=== PATIENT | male | born 1960 | race Caucasian/White ===

== ENCOUNTER 2017-11-01 21:52 | Emergency (ER) | payer BC, SELFPAY ==
[2017-11-01 21:58] VITALS: PULSE 79; RESP 18; TEMP 36.3; O2SAT 97; BMI 30.7
--- NOTE | 2017-11-01 21:58 | ED.RN ---
NO OLD EKG'S IN MUSE
[2017-11-01 22:01] VITALS: BP 123/73
--- NOTE | 2017-11-01 22:15 | EKG12_ITS ---
Test Reason : CP Blood Pressure : / mmHG Vent. Rate : 067 BPM Atrial Rate : 067 BPM P-R Int : 142 ms QRS Dur : 092 ms QT Int : 384 ms P-R-T Axes : 073 027 046 degrees QTc Int : 405 ms Normal sinus rhythm Normal ECG Confirmed by YOGI GORE, LAKEISHA ([id number]), assistant film editor ESAU GREEN ([id number]) on 11/05/2017 2:11:49 PM Referred By: FILEMON Confirmed By:LAKEISHA CALIX MD
[2017-11-01 22:17] VITALS: O2SAT 99
[2017-11-01] MEDS: Aspirin 81 MG TAB.CHEW 324 MG PO (22:20)
[2017-11-01 22:27] LABS: Absolute Lymphocyte Count 4.23 X10^3/ul (0.83-4.51); Basophil# 0.03 X10^3/uL; Basophil% 0.3 % (0-1); Eosinophil# 0.18 X10^3/uL; Hematocrit 44.2 % (40-54); Hemoglobin 14.4 g/dl (13.0-16.5); Lymphocyte # 4.23 X10^3/ul (4.0); Lymphocyte % 47.2 % (19-41); Mean Corp Hgb Conc 32.6 g/gl (32-36); Mean Corpuscular Hgb 29.8 pg (27.0-32.0); Mean Corpuscular Volume 91.3 fL (80-94); Mean Platelet Vol. 11.5 fl (6.2-12.0); Monocyte# 0.52 X10^3/uL; Monocyte% 5.8 % (0-10); Neutrophil % 44.7 % (47-70); Platelet Count 188 K/mm3 (150-450); RBC Distribution Width CV 13.1 % (11.6-14.6); RBC Distribution Width SD 42.9 fl (35.1-43.9); Red Blood Count 4.84 M/mm3 (4.6-6.2)
[2017-11-01 22:28] LABS: POSITIVE COUNT NO; POSITIVE DIFFERENTIAL NO; POSITIVE MORPHOLOGY NO
[2017-11-01 22:34] LABS: D-Dimer Quantitative (DVT/PE) 0.37 FEU/ug/m (0.27-0.49)
--- NOTE | 2017-11-01 22:35 | RAD_ITS ---
STUDY: X-RAY CHEST REASON FOR EXAM: Male, 57 years old. Chest pain TECHNIQUE: 2 views COMPARISON: None. FINDINGS: Limited inspiration with bibasilar atelectatic changes versus infiltrate, left greater than right. Negative for substantial pleural effusion. Normal size heart. Normal mediastinum and lyle. Normal visualized pulmonary arteries. Mild elongation of the thoracic aorta. Normal visualized thoracic spine. Normal visualized ribs, clavicles, and shoulders. There is no demonstrated abnormality of the visualized soft tissue structures of the upper abdomen. RAD/Chest PA and Lateral IMPRESSION: Shallow inspiration with bibasilar small infiltrates or atelectasis, left greater than right. Potential pneumonic process. Negative for cardiomegaly, pulmonary venous congestion or substantial pleural effusions. Electronically Signed: Rita Elise MD at 23:29 EST , Service support ,
[2017-11-01 22:45] LABS: Anion Gap 8 (5-15); BUN 20 mg/dL (7-18); BUN/Creat Ratio 19.4 RATIO (10-20); Calcium,Total 8.5 mg/dL (8.5-10.1); Chloride 106 mmol/L (98-107); Creatinine, Serum 1.03 mg/dL (0.70-1.30); EST Glomerular Filtration Rate 78 mL/min (>60); Est Glom Filt Rate - Afr Amer 95 mL/min (>60); Estimated Creatinine Clearance 79.73 ml/min; Glucose 97 mg/dL (74-106); Potassium 3.4 mmol/L (3.5-5.1); Sodium Level 141 mmol/L (136-145)
[2017-11-01 23:12] VITALS: BP 109/68; PULSE 60; RESP 12; O2SAT 97
[2017-11-01] MEDS: Ketorolac 30 MG/ML Syringe IV (23:27)
--- NOTE | 2017-11-01 23:45 | ED.DCSUM_ITS ---
- ER Visit Summary Date of Service: 11/01/17 Chief Complaint: Chest pain History of Present Illness: The patient is a 57 M who presents with chest pain. It began about an hour ago while at rest. It is sharp. It is point tender on the left side of his chest below his breast. It is worse with movement of the torso palpation or breathing. He denies any associated symptoms such as nausea vomiting diaphoresis shortness of breath cough congestion rhinorrhea sore throat fever. History of exertional chest pain or shortness of breath. He denies any medical history. He denies diabetes hypertension hyperlipidemia. He is not a smoker. No family history of heart disease at a young age. No pulmonary embolism risk factors such as recent travel surgery or immobilization. Physical Examination: Afebrile vitals are normal Moist mucous members Heart regular rate and rhythm Lungs are clear Patient has point tenderness of the left anterior chest wall. Abdomen soft nontender nondistended Extremities nontender without edema 2+ radial pulses Test Results: EKG shows normal sinus rhythm rate of 67. CBC BMP unremarkable. Troponin negative. D-dimer negative. Chest x-ray shows small bibasilar infiltrates or atelectasis left greater than right possible pneumonia. Emergency Department Course and Treatment: Laboratory studies unremarkable and EKG shows normal sinus rhythm with no acute ischemic changes. Chest x-ray findings are consistent with atelectasis versus possible pneumonia. When I discussed this with the patient he now states that he actually has had some chest congestion and mild cough. The risks and benefits I would eat him for potential pneumonia. He was given a prescription for Zithromax. He was also given a prescription for naproxen for pain. He understands to return for new or worsening symptoms. He was advised to follow-up as an outpatient. She is answered at bedside. Patient agreeable to plan was discharged home. Treatment Plan: [] Disposition: Discharge Impression: Chest pain Community-acquired pneumonia This note was generated with Serv[employer] dictation software. It may contain incorrect words, spelling, and punctuation that were not noted in review of the chart prior to signing ED Disposition - Plan for ED Patient: Chief Complaint: Chest Pain Referrals: Moose Yang DO [Primary Care Provider] -
--- NOTE | 2017-11-01 23:45 | ED.DEP ---
ED Disposition - Plan for ED Patient: Chief Complaint: Chest Pain Instructions: ED Chest Pain NonCardiac, ED Pneumonia Adult Prescriptions: Azithromycin [Zithromax Z-Gutierrez] 250 mg PO UD #1 box Naproxen [Naprosyn] 500 mg PO BID #20 tab Referrals: Moose Yang DO [Primary Care Provider] -
[2017-11-01 23:47] VITALS: BP 119/72; PULSE 62; RESP 17; O2SAT 99
== END 2017-11-01 23:55 | disposition home or self-care (01) ==
PROVIDERS: Emergency Provider Emergency Medicine; Family Provider Family Medicine; PCP Family Medicine
DX: J18.9 Pneumonia, unspecified organism (principal); R07.9 Chest pain, unspecified
CPT/HCPCS: 71046; 80048; 84484; 85025; 85379; 93005; 96374; 99285; A4216

== ENCOUNTER → 2017-11-28 17:33 | Outpatient (CLI) | payer BC, SELFPAY ==
--- NOTE | 2017-11-28 17:47 | RAD_ITS ---
STUDY: X-RAY CHEST REASON FOR EXAM: Male, 57 years old. History pneumonia TECHNIQUE: Frontal and lateral views of the chest. COMPARISON: 11/01/2017. FINDINGS: The lungs are clear and expanded. There is no demonstrated pleural abnormality. Normal size heart. Normal mediastinum and lyle. Normal visualized pulmonary arteries. Normal visualized aortic arch and descending thoracic aorta. Normal visualized thoracic spine. Normal visualized ribs, clavicles, and shoulders. There is no demonstrated abnormality of the visualized soft tissue structures of the upper abdomen. RAD/Chest PA and Lateral IMPRESSION: No acute cardiopulmonary disease. Electronically Signed: Simón Guerra DO at 18:11 EDT , Service support ,
== END ==
PROVIDERS: Family Provider Family Medicine; PCP Family Medicine
DX: J18.1 Lobar pneumonia, unspecified organism (principal)
CPT/HCPCS: 71046

== ENCOUNTER 2017-12-05 20:25 | Emergency (ER) | payer BC, SELFPAY ==
[2017-12-05 20:25] VITALS: BP 140/81; PULSE 95; RESP 16; TEMP 36.5; O2SAT 99; BMI 30.8
--- NOTE | 2017-12-05 20:34 | ED.DCSUM_ITS ---
- ER Visit Summary Date of Service: 12/05/17 Chief Complaint: Abdominal pain, flulike illness History of Present Illness: The patient is a 57 M since to the emergency department with approximately 12 hours of generalized malaise, chills, myalgias , and left lower quadrant pain. The patient states symptoms began this morning. He states he felt hung over. He states he began to have some generalized aches and pains. Throughout the day, he began have some pain in the left side of his abdomen more towards the lower quadrant. He did have some loose watery diarrhea which has since resolved. He states his never had symptoms like this before. The patient is otherwise healthy. He takes no daily medications. He has no history of abdominal surgery. He was seen at urgent care and sent over for further evaluation. Physical Examination: Vital signs reviewed General: Well-nourished, well-developed Head: Normocephalic, atraumatic Eyes: Pupils equal and reactive, extraocular muscles intact Neck, supple, no lymphadenopathy Heart: Regular rate and rhythm Respiratory: No distress, clear bilaterally Abdomen: Soft, nontender, mildly tender in the left lower quadrant without rebound or guarding, no peritoneal signs Back: Nontender Extremities: Nontender, no edema, no cords Skin: Normal color no rash Neuro: Alert and oriented, no focal or lateralizing deficits Test Results: [] Emergency Department Course and Treatment: The patient did have infectious type symptoms with mild pain in his left lower quadrant. IV was established. He was given fluids, antiemetics, and anti-inflammatories. He did have improvement of his symptoms. Rapid flu was negative. Screening labs are unremarkable. CT shows small nodes and some dilated loops of fluid-filled small bowel consistent with enteritis. On reevaluation, the patient has a soft and nontender abdomen. He has had no progression of symptoms. I do feel that this likely represents a viral GI illness. At this time, I do for the patient is safe for discharge. He was counseled on supportive care and reasons to return. The patient will be discharged home. Treatment Plan: [] Disposition: Discharge Impression: 1. Gastroenteritis This note was generated with [employer] dictation software. It may contain incorrect words, spelling, and punctuation that were not noted in review of the chart prior to signing ED Disposition - Plan for ED Patient: Chief Complaint: Abd Pain Instructions: ED Gastroenteritis Vs Food Poison Referrals: Moose Yang DO [Primary Care Provider] -
--- NOTE | 2017-12-05 20:35 | CT_ITS ---
CT Abdomen And Pelvis W/ Contrast INDICATION: LEFT SIDE ABD PAIN, DIVERTICULITIS COMPARISON: None TECHNIQUE: Axial CT imaging of the abdomen and pelvis with IV contrast. Coronal and sagittal reformatted images. Radiation dose optimization technique applied. FINDINGS: Visualized lung bases are clear. The heart size is normal. A small hiatal hernia is present. The liver, gallbladder, spleen, adrenal glands, and pancreas are unremarkable. The kidneys enhance contrast symmetrically bilaterally and are without evidence of hydronephrosis. Small right cortical renal cyst is noted. The bowel loops are nondistended. Small bowel loops are fluid-filled. Distal colonic diverticulosis is present without evidence of acute diverticulitis. Multiple small mesenteric lymph nodes are seen, likely reactive. Urinary bladder appears within normal limits. Prostate is mildly prominent. There is no evidence of free air or free fluid. The osseous structures demonstrate endplate degenerative changes at the upper lumbar spine and a limbus vertebra at L4. CT/Abdomen/Pelvis W IV Cont ONLY IMPRESSION: Scattered colonic diverticulosis without evidence of acute diverticulitis. Fluid-filled small bowel loops and few reactive mesenteric lymph nodes, most suggestive of enteritis. at 2210 Reported and signed by: Ricarda Nuñez MD Electronically Signed: Ricarda Nuñez MD at 21:09 EDT Tel , Service support ,
[2017-12-05 20:52] LABS: Absolute Neutrophil Count 7.7 X10^3/uL (2.0-7.7); Basophil# 0.02 X10^3/uL; Basophil% 0.2 % (0-1); Eosinophil# 0.13 X10^3/uL; Eosinophils% 1.4 % (0-5); Hematocrit 47.5 % (40-54); Hemoglobin 15.7 g/dl (13.0-16.5); Lymphocyte % 9.7 % (19-41); Mean Corp Hgb Conc 33.1 g/gl (32-36); Mean Corpuscular Volume 90.8 fL (80-94); Mean Platelet Vol. 11.3 fl (6.2-12.0); Monocyte# 0.54 X10^3/uL; Monocyte% 5.8 % (0-10); Neutrophil # 7.66 X10^3/uL (2.7-7.7); Neutrophil % 82.9 % (47-70); Platelet Count 165 K/mm3 (150-450); RBC Distribution Width CV 13.1 % (11.6-14.6); RBC Distribution Width SD 43.4 fl (35.1-43.9); Red Blood Count 5.23 M/mm3 (4.6-6.2); White Blood Count 9.3 K/mm3 (4.4-11.0)
[2017-12-05 20:53] LABS: POSITIVE COUNT NO; POSITIVE DIFFERENTIAL NO; POSITIVE MORPHOLOGY NO
[2017-12-05] MEDS: Ketorolac 30 MG/ML Syringe IV (20:54)
[2017-12-05] MEDS: 0.9% Normal Saline 1,000 ML 1000 ML IV (20:54)
[2017-12-05] MEDS: Ondansetron 4 MG/2 ML Vial IV (20:54)
[2017-12-05 21:09] LABS: ALB/GLOB Ratio 1.1 RATIO (0.9-2.4); AST(SGOT) 23 U/L (15-37); Alanine Aminotransfer ALT/SGPT 25 U/L (16-61); Albumin, Serum 4.2 g/dL (3.2-5.0); Alkaline Phosphatase 74 U/L (45-117); Anion Gap 6 (5-15); BUN 13 mg/dL (7-18); BUN/Creat Ratio 13.5 RATIO (10-20); Calcium,Total 8.2 mg/dL (8.5-10.1); Chloride 107 mmol/L (98-107); Creatinine, Serum 0.96 mg/dL (0.70-1.30); EST Glomerular Filtration Rate 85 mL/min (>60); Est Glom Filt Rate - Afr Amer 102 mL/min (>60); Estimated Creatinine Clearance 85.55 ml/min; Globulin 3.7 g/dL (2.2-4.2); Glucose 103 mg/dL (74-106); Potassium 3.7 mmol/L (3.5-5.1); Protein, Total 7.9 g/dL (6.4-8.2); Sodium Level 142 mmol/L (136-145)
[2017-12-05 21:43] LABS: Bacteria 0 SEEN /hpf (None Seen); Red Blood Cells-Urine 0 SEEN /hpf (0-5); Squamous Epithelial Cells - UA 0 SEEN /hpf (0-5)
[2017-12-05 21:47] LABS: Color, Urine Yellow (Yellow); Glucose, Dipstick Normal (Normal); Ketone-Dipstick Negative (Negative); Leukocyte Esterase-Dipstick Negative /ul (Negative); Nitrite-Dipstick Negative (Negative); Occult Blood-Urine Negative /ul (Negative); Protein-Dipstick Negative (Negative); Specific Gravity, Urine 1.015 (1.002-1.030); Urine Bilirubin Dipstick Negative (Negative); Urine Clarity Clear (Clear); Urine Urobilinogen Normal (Normal)
[2017-12-05 21:56] LABS: Mucous, Urine 1+ /hpf (<or=2+)
[2017-12-05 21:58] LABS: White Blood Cells 0-5 SEEN /hpf (0-5)
[2017-12-05 22:00] LABS: Hyaline Cast 0-5 SEEN /lpf (0-5)
[2017-12-05 22:38] VITALS: BP 127/70; PULSE 89; RESP 16; O2SAT 95
== END 2017-12-05 23:17 | disposition home or self-care (01) ==
PROVIDERS: Emergency Provider Emergency Medicine; Family Provider Family Medicine; PCP Family Medicine
DX: K52.9 Noninfective gastroenteritis and colitis, unspecified (principal)
CPT/HCPCS: 74177; 80053; 81001; 85025; 87804; 96361; 96374; 96375; 99284; J7030; Q9967; A4216; J2405

== ENCOUNTER → 2017-12-22 10:38 | Outpatient (CLI) | payer BC, SELFPAY ==
--- NOTE | 2017-12-22 10:43 | STE_ITS ---
Reason For Study: Chest Discomfort Stress Results Protocol: Rosalino Protocol Maximum Predicted HR: 161 bpm Target HR: 137 bpm% Max imum Predicted HR: 99 % DurationHeart Rate Stage (mm:ss) (bpm) BP Baseline 63 118/74 Rosalino Protocol Stage I 3:00 10 7 132/74 Rosalino Protocol Stage II 3:00 13 1 130/74 Rosalino Protocol Stage III 3:00 16 0 146/68 Recovery 100 122/7 2 Stress Duration: 9:00 mm:ss Maximum Stress HR: 160 bpmM ETS: 10 Baseline Echocardiogram Findings Stress Echo Wall motion Data Resting WMIntermediate WMStress WM Resting Wall Motion Wall Motion Stress No regional wall motion No regional wall motion abnormalities noted. abnormalities noted. Ejection Fraction 60 %. Ejection Fraction 65 %. Stress Results Exercise was stopped due to dyspnea. Normal blood pressure response to exercise. EKG Data Baseline ECG demonstrates normal sinus rhythm with a rate of 62 beats per minute. Normal intervals are noted. The resting blood pressure was 118/74. The patient exercised according to the regular Rosalino protocol for a total duration of 9. The maximum heart rate attained was 160 beats per minute. This was 99% of maximum predicted heart rate. The patient exercised into stage 3 of the Rosalino protocol. During stress, there were no ST or T wave changes noted to suggest ischemia. At peak exercise, upsloping ST changes only were noted, which did not meet the criteria for ischemia. The peak blood pressure was 160/64. No arrhythmias noted. No clinical angina was noted. Interpretation Summary Normal resting LV systolic function. Nonstenotic valves. With stress, the LV size decreased and all segments augmented normally. The LVEF increased from 60% to 65%. Negative for ischemia at 99% of MPHR and at 10.4 METS. Normal stress echo at a high workload. Ordering Physician: Moose Yang M.D. Referring Physician: Moiz Ramsey MD Performed By: Roof, Andreia, RDCS, RVT
== END ==
PROVIDERS: Family Provider Family Medicine; PCP Family Medicine
DX: R07.89 Other chest pain (principal)
CPT/HCPCS: 93017; 93350

== ENCOUNTER 2018-09-11 14:33 | Emergency (ER) | payer BC, SELFPAY ==
[2018-09-11 14:35] VITALS: BP 133/70; PULSE 68; RESP 16; TEMP 36.6; O2SAT 98; BMI 30.8
[2018-09-11 14:37] VITALS: BP 142/75; PULSE 63; RESP 12; O2SAT 96
--- NOTE | 2018-09-11 14:55 | EKG12_ITS ---
Test Reason : CP Blood Pressure : / mmHG Vent. Rate : 066 BPM Atrial Rate : 066 BPM P-R Int : 162 ms QRS Dur : 090 ms QT Int : 392 ms P-R-T Axes : 051 011 041 degrees QTc Int : 410 ms Normal sinus rhythm Normal ECG Confirmed by YOGI GORE, LAKEISHA ([id number]), pictures editor ESAU GREEN ([id number]) on 09/14/2018 1:27:09 PM Referred By: DC Confirmed By:LAKEISHA CALIX MD
--- NOTE | 2018-09-11 14:59 | ED.VISSUMM ---
- ER Visit Summary Date of Service: 09/11/18 Chief Complaint: Intermittent anterior left sided sharp chest pain History of Present Illness: The patient is a 58 M who was a former smoker. He quit 20 years ago. He presents with sharp left anterior infraclavicular pain that is worse with movement of his left arm. He has had 4 episodes past 3 days. There is no associated symptoms. There is no radiation to the left upper extremity, neck, jaw or right upper extremity. There is no history of hiatal hernia or reflux. He denies hematemesis, melena hematochezia. He denies symptoms of claudication. There is no history of trauma. He has not had any dyspnea on exertion or chest discomfort with exertion the past 2 weeks. Maternal grandmother had heart issues and first event was age 50. She age of 70. He denies fever, chills night sweats. He denies ocular, visual auditory symptoms. He denies shortness of breath, cough, orthopnea or PND. He denies leg pain, swelling or discoloration. He denies history of PE or DVT. Physical Examination: Vital signs remarkable for slight elevation blood pressure 142/75. HEENT exam is unremarkable. Heart is regular without murmur, gallop or rub. S1 and S2 are normal. Lungs are clear to auscultation with good movement of air bilaterally. There is no reproducible left anterior chest pain. Axillary, median, radial and ulnar function intact. Radial pulses palpable. Abdomen soft nontender. There is no asymmetry, swelling, discoloration, leg vein distention, palpable cords or tenderness along the distribution of the deep venous system. There is no stigmata of peripheral arterial disease lower extremity. DP PT pulses are 2+ and symmetric. Neuro exam is nonfocal. Test Results: CBC is normal. Basic mental panel is unremarkable. Chloride is 108 and glucose 115. Troponin is less than 0.015 with chest pain of 1-2 hours in the last several days. EKG sinus rhythm rate 66 and normal. Heart score is 1 Emergency Department Course and Treatment: Chest pain order set was initiated to evaluate for cardiac versus noncardiac versus pulmonary versus GI etiology. This may represent musculoskeletal. Difficult to assess this patient since he does not answer questions that are asked and needs to be asked multiple times to redirect him to answer the question that was asked. Treatment Plan: With atypical presentation negative troponin with pain that occurred 72 hours ago, 42 hours ago at 24 hours ago and normal EKG with discomfort one can conclude this is not cardiac in etiology. He will be discharged home to follow-up with his PCP. Disposition: Discharged home Impression: Left anterior chest pain unknown etiology This note was generated with [employer] dictation software. It may contain incorrect words, spelling, and punctuation that were not noted in review of the chart prior to signing ED Disposition - Plan for ED Patient: Disposition: Home or Assisted Living Chief Complaint: Chest Pain Instructions: ED Chest Pain NonCardiac Referrals: Moose Yang DO [Primary Care Provider] - 3-5 Days
--- NOTE | 2018-09-11 15:00 | RAD_ITS ---
STUDY: X-RAY CHEST REASON FOR EXAM: Male, 58 years old. Chest pain. TECHNIQUE: Frontal and lateral views of the chest. COMPARISON: 11/28/2017. FINDINGS: The lungs are clear and expanded. There is no demonstrated pleural abnormality. Normal size heart. Normal mediastinum and lyle. Normal visualized pulmonary arteries. Normal visualized aortic arch and descending thoracic aorta. Normal visualized thoracic spine. Normal visualized ribs, clavicles, and shoulders. There is no demonstrated abnormality of the visualized soft tissue structures of the upper abdomen. RAD/Chest PA and Lateral IMPRESSION: Normal x-ray examination of the chest. Electronically Signed: Cesar Buckley MD at 15:14 EST , Service support ,
[2018-09-11] MEDS: Aspirin 81 MG TAB.CHEW 324 MG PO (15:07)
[2018-09-11 15:28] LABS: Anion Gap 8 (5-15); BUN 15 mg/dL (7-18); BUN/Creat Ratio 15.4 RATIO (10-20); Calcium,Total 8.1 mg/dL (8.5-10.1); Chloride 108 mmol/L (98-107); Creatinine, Serum 0.97 mg/dL (0.70-1.30); EST Glomerular Filtration Rate 84 mL/min (>60); Est Glom Filt Rate - Afr Amer 101 mL/min (>60); Estimated Creatinine Clearance 83.62 ml/min; Glucose 115 mg/dL (74-106); Potassium 3.7 mmol/L (3.5-5.1); Sodium Level 141 mmol/L (136-145)
[2018-09-11 15:33] VITALS: BP 123/75; PULSE 57; RESP 14; O2SAT 96
[2018-09-11 15:33] LABS: Absolute Lymphocyte Count 2.75 X10^3/ul (0.83-4.51); Absolute Neutrophil Count 3.4 X10^3/uL (2.0-7.7); Basophil# 0.03 X10^3/uL; Basophil% 0.4 % (0-1); Eosinophil# 0.12 X10^3/uL; Eosinophils% 1.8 % (0-5); Hematocrit 44.1 % (40-54); Hemoglobin 14.6 g/dl (13.0-16.5); Lymphocyte # 2.75 X10^3/ul (4.0); Lymphocyte % 40.4 % (19-41); Mean Corp Hgb Conc 33.1 g/gl (32-36); Mean Corpuscular Hgb 29.6 pg (27.0-32.0); Mean Corpuscular Volume 89.3 fL (80-94); Monocyte# 0.45 X10^3/uL; Monocyte% 6.6 % (0-10); Neutrophil # 3.44 X10^3/uL (2.7-7.7); Neutrophil % 50.7 % (47-70); Platelet Count 192 K/mm3 (150-450); RBC Distribution Width SD 42.2 fl (35.1-43.9); Red Blood Count 4.94 M/mm3 (4.6-6.2); White Blood Count 6.8 K/mm3 (4.4-11.0)
[2018-09-11 15:34] LABS: POSITIVE COUNT NO; POSITIVE DIFFERENTIAL NO; POSITIVE MORPHOLOGY NO
[2018-09-11 16:02] VITALS: BP 125/80; PULSE 59; RESP 18; O2SAT 97
== END 2018-09-11 16:03 | disposition home or self-care (01) ==
PROVIDERS: Emergency Provider Emergency Medicine; Family Provider Family Medicine; PCP Family Medicine
DX: R07.89 Other chest pain (principal); Z87.891 Personal history of nicotine dependence; Z87.01 Personal history of pneumonia (recurrent)
CPT/HCPCS: 71046; 80048; 84484; 85025; 93005; 99283; A4216

== ENCOUNTER 2020-07-15 14:51 | Emergency (ER) | payer BC, SELFPAY ==
[2020-07-15 14:52] VITALS: BP 105/56; PULSE 77; RESP 18; TEMP 36.6; O2SAT 99; BMI 30.1
--- NOTE | 2020-07-15 15:05 | RAD_ITS ---
STUDY: X-RAY CHEST REASON FOR EXAM: Male, 60 years old. COVID positive, fever, cough. TECHNIQUE: AP COMPARISON: 09/11/2018 FINDINGS: The lungs are clear and expanded. There is no demonstrated pleural abnormality. Normal size heart. Normal mediastinum and lyle. Normal visualized pulmonary arteries. Normal visualized aortic arch and descending thoracic aorta. Normal visualized thoracic spine. There is degenerative osteoarthritis of the bilateral shoulders. There is no demonstrated abnormality of the visualized soft tissue structures of the upper abdomen. RAD/Chest 1 View (Portable) IMPRESSION: Stable, nonacute portable x-ray examination of the chest. Electronically Signed: Neftali Rey MD (Brooks) at 15:31 EDT , Service support ,
[2020-07-15 15:11] VITALS: BP 105/56; PULSE 77; RESP 18; TEMP 36.6; O2SAT 97; O2SAT 99
--- NOTE | 2020-07-15 15:11 | ED.DCSUM_ITS ---
- ER Visit Summary Date of Service: 07/15/20 Chief Complaint: Covid positive History of Present Illness: The patient is a 60 M who had symptoms 6 days ago. He was diagnosed with COVID-19. He continues to have cough, fevers, body aches, dizziness. He denies any history of lung disease, heart disease, blood clots, liver disease, kidney disease, immune compromise. His home oxygen has been between the mid 90s and high 90s on room air. Physical Examination: Afebrile and vital signs unremarkable. Patient alert and oriented. No acute distress. Sitting, breathing, speaking comfortably. Lungs are clear throughout. Heart is regular. Test Results: Chest x-ray pending. Emergency Department Course and Treatment: Patient has had a continued cough and is having upper back pain. He continues to have fevers. We will check a chest x-ray. He was ambulated with a pulse ox and did not desaturate. His main risk factor is his age. He is appropriate for outpatient follow-up. He will maintain social precautions. Return for any new or worsening issues. Chest x-ray was unremarkable Treatment Plan: Above Disposition: Discharge Impression: COVID-19 infection This note was generated with [employer] dictation software. It may contain incorrect words, spelling, and punctuation that were not noted in review of the chart prior to signing ED Disposition - Plan for ED Patient: Referrals: NOT,DEFINED [NON-STAFF] -
[2020-07-15 15:21] VITALS: O2SAT 97
--- NOTE | 2020-07-15 15:55 | ED.DEP ---
ED Disposition - Plan for ED Patient: Instructions: ED Upper Resp Infec No Abx Tx Referrals: Brandi Anderson [NON-STAFF] -
[2020-07-15 16:38] VITALS: RESP 17; O2SAT 97
== END 2020-07-15 16:38 | disposition home or self-care (01) ==
PROVIDERS: Emergency Provider Emergency Medicine; PCP Nurse Practitioner Family
DX: U07.1 COVID-19 (principal); Z87.891 Personal history of nicotine dependence
CPT/HCPCS: 71045; 99282

== ENCOUNTER → 2020-12-05 17:43 | Outpatient (CLI) | payer BC, SELFPAY ==
--- NOTE | 2020-12-05 17:51 | CT_ITS ---
STUDY: CT SOFT TISSUE NECK WITH CONTRAST REASON FOR EXAM: Male, 60 years old. sore throat RADIATION DOSAGE (If Supplied By Facility): CTDIvol = ( 18.60 ) mGy, DLP = ( 613.35 ) mGycm TECHNIQUE: The patient was scanned in a multi-detector CT scanner. High resolution transaxial imaging was performed following intravenous administration of IV 75mL Isovue-370. Sagittal and coronal images were reconstructed. Individualized dose optimization techniques were used for this CT. COMPARISON: None. FINDINGS: Normal bilateral parotid glands. Normal bilateral account financial manager spaces. Normal bilateral parapharyngeal spaces. Normal bilateral carotid spaces. Normal bilateral sublingual and submandibular glands and spaces. Normal visualized nasopharynx. Normal retropharyngeal space. Normal perivertebral space. Normal visualized bilateral faucial tonsils. The visualized tongue, tongue base and oropharynx are normal. Mild fullness of the lymph nodes at the carotid sheaths bilaterally, largest on the left measuring 1.3 x 0.9 cm and the one on the right measuring 0.7 x 0.5 cm. There is no demonstrated solid or cystic mass lesion. There is no abnormal contrast enhancement. Normal epiglottis, bilateral vallecula and hypopharynx. The pre-epiglottic and paraglottic adipose spaces are normal. Normal visualized bilateral piriform sinuses, aryepiglottic folds, vocal cords, and arytenoid-cricoid articulations. Normal subglottic trachea. Normal bilateral lobes of the thyroid gland. Normal visualized pulmonary apices. Normal visualized paranasal sinuses. There is multilevel degenerative changes of the cervical spine. CT/Soft Tissue Neck WITH Contrast IMPRESSION: Mild nonspecific fullness of the lymph nodes along the carotid sheath which may represent a nonspecific inflammatory response. Otherwise unremarkable CT examination of the soft tissues of the neck. Specifically, no evidence of abscess, fluid collection or edema. Electronically Signed: Diana Waddell MD at 2:27 EDT , Service support ,
[2020-12-05 18:16] LABS: CREATININE FINGERSTICK 1.1 mg/dL (0.70-1.30); EGFR FINGERSTICK > 60.0000 mL/min (>60)
== END ==
PROVIDERS: PCP Nurse Practitioner Family; Referring Provider Otolaryngology Otolaryngology/Facial Plastic Surgery; Visit Provider Otolaryngology Otolaryngology/Facial Plastic Surgery
DX: J02.9 Acute pharyngitis, unspecified (principal)
CPT/HCPCS: 70491; Q9967

== ENCOUNTER → 2022-09-18 | Outpatient (CLI) | payer BC, SELFPAY ==
--- NOTE | 2022-09-18 16:01 | RAD_ITS ---
EXAM: XR CHEST, 2 VIEWS CLINICAL INDICATION: chest tightness TECHNIQUE: Frontal and lateral views of the chest. This report was created using [employer] report generation technology. COMPARISON: 03/28/2021 FINDINGS: LUNGS AND PLEURAL SPACES: Unremarkable. No consolidation or edema. No pneumothorax. No effusion. HEART: Unremarkable. Cardiac silhouette not enlarged. MEDIASTINUM: Central airways and mediastinal contour are unremarkable. BONES/JOINTS: Unremarkable. SOFT TISSUES: Unremarkable. RAD/Chest PA and Lateral IMPRESSION: No radiographic evidence of acute cardiopulmonary disease. Electronically Signed: Ivan Horton MD at 16:26 EST ,
== END | disposition home or self-care (01) ==
LOC: MTRAD 15:59
PROVIDERS: PCP Internal Medicine; Referring Provider Internal Medicine; Visit Provider Internal Medicine
DX: R07.89 Other chest pain (principal)
CPT/HCPCS: 71046

== ENCOUNTER → 2023-01-16 | Outpatient (CLI) | payer BC, SELFPAY ==
--- NOTE | 2023-01-16 12:54 | US_ITS ---
STUDY: THYROID ULTRASOUND REASON FOR EXAM: Male, 62 years old. thyroid nodule -- thyroid nodule TECHNIQUE: Ultrasound evaluation of the thyroid was performed with real-time and static tuttle-scale imaging. COMPARISON: None. FINDINGS: RIGHT LOBE: The right lobe of the thyroid gland measures 5.6 x 2.1 x 2.1 cm. There is a homogeneous echotexture. There are no demonstrated solid, cystic or complex lesions. LEFT LOBE: The left lobe of the thyroid gland measures 4.8 x 2.2 x 1.7 cm. There is a homogeneous echotexture. There is a lower pole cystic nodule measuring 4 x 3 x 2 mm demonstrating regular margins and deny nodular vascularity ISTHMUS: The isthmus measures 3 mm . The regional lymph nodes are normal. US/Thyroid IMPRESSION: Tiny cystic nodule in the left lobe most likely benign. Recommend clinical correlation and follow-up studies Electronically Signed: Orlin Sanchez MD at 20:25 EDT ,
== END | disposition home or self-care (01) ==
LOC: US 12:53
PROVIDERS: PCP Internal Medicine; Referring Provider Internal Medicine; Visit Provider Internal Medicine
DX: E04.1 Nontoxic single thyroid nodule (principal)
CPT/HCPCS: 76536

== ENCOUNTER → 2023-02-20 | Outpatient (CLI) | payer BC, SELFPAY ==
--- NOTE | 2023-02-20 17:41 | MRI_ITS ---
MR Pelvis WO/W Contrast 02/20/2023 6:04 PM COMPARISON: None CLINICAL HISTORY: 62-year-old man with elevated PSA TECHNIQUE: Standard prostate MR protocol was used before and after administration of 20 cc of IV Clariscan. FINDINGS: Prostate volume: 37 cc PSA density: PSA level not provided Length of membranous urethra: 17 mm Post-biopsy hemorrhage: None Multiparametric MR evaluation: Heterogeneous appearance of the central gland is consistent with benign prostatic hyperplasia. 0.9 cm T2 dark wedge-shaped area in the left posterolateral peripheral zone from mid gland to apex is not bright on DWI and most likely represents prostatitis. Lesion 1: LOCATION - a 1.8 x 1.3 x 1.0 cm heterogeneous T2 dark lesion in the left anterior transitional zone from mid gland to base. It is moderately bright on T2 WI and moderately dark on ADC map. T2 - 3 DWI - 3 DCE - inconclusive Overall PI-RADS v2 score = 4 Lesion 2: LOCATION - a 2.4 x 1.7 x 1.8 cm moderately T2 hypointense lesion in the right anterior transitional zone from mid gland to base. It has high DWI signal and dark on ADC. T2 - 5 DWI - 5 DCE - inconclusive Overall PI-RADS v2 score = 5 Capsular margin and neurovascular bundle: No obvious microcapsular extension. There is microcapsular extension of both lesions 1 and 2 laterally. Seminal vesicles: No obvious extension. Lymph nodes: 0.8 cm prominent left external iliac node. Bones: No suspicious lesions in the field of view. MRI/Pelvis W/WO Contrast IMPRESSION: --1.8 cm PI-RADS 4 lesion in the left anterior TZ from mid gland to base. --2.4 cm PI-RADS 5 lesion in the right anterior TZ from mid gland to base. - No evidence of macroscopic extracapsular extension. There is microcapsular extension by both lesions 1 and 2 laterally. - No evidence of seminal vesicle invasion. - 0.8 cm prominent left external iliac node. - No suspicious bone lesions. --Benign prostatic hyperplasia --Likely prostatitis in the left PZ Electronically Signed: Sujit Renee MD at 0:07 EDT ,
[2023-02-20 18:14] LABS: CREATININE FINGERSTICK < 0.9 mg/dL (0.70-1.30); EGFR FINGERSTICK > 60.0000 mL/min (>60)
== END | disposition home or self-care (01) ==
LOC: MRI 17:38
PROVIDERS: PCP Internal Medicine; Referring Provider Urology; Visit Provider Urology
DX: R97.20 Elevated prostate specific antigen [PSA] (principal)
CPT/HCPCS: 72197; A9575

== ENCOUNTER → 2023-03-06 | Outpatient (CLI) | payer BC, SELFPAY ==
[2023-03-06 16:08] LABS: Hematocrit 42.1 % (40-54); Hemoglobin 13.7 g/dL (13.0-16.5); Mean Corp Hgb Conc 32.5 g/dL (32-36); Mean Corpuscular Hgb 29.8 pg (27.0-32.0); Mean Corpuscular Volume 91.7 fL (80-94); Mean Platelet Vol. 11.9 fl (6.2-12.0); Platelet Count 206 K/mm3 (150-450); RBC Distribution Width CV 12.6 % (11.6-14.6); RBC Distribution Width SD 41.8 fl (35.1-43.9); Red Blood Count 4.59 M/mm3 (4.6-6.2); White Blood Count 6.6 K/mm3 (4.4-11.0)
[2023-03-06 16:12] LABS: Anion Gap 4 (5-15); BUN 14 mg/dL (7-18); BUN/Creat Ratio 13.6 RATIO (10-20); Calcium,Total 8.9 mg/dL (8.5-10.1); Chloride 109 mmol/L (98-107); Creatinine, Serum 1.03 mg/dL (0.70-1.30); EST Glomerular Filtration Rate 77 mL/min (>60); Est Glom Filt Rate - Afr Amer 93 mL/min (>60); Glucose 93 mg/dL (74-106); Potassium 3.9 mmol/L (3.5-5.1); Sodium Level 141 mmol/L (136-145)
== END | disposition home or self-care (01) ==
LOC: MTLAB 11:25
PROVIDERS: PCP Internal Medicine; Referring Provider Urology; Visit Provider Urology
DX: Z01.812 Encounter for preprocedural laboratory examination (principal)
CPT/HCPCS: 36415; 80048; 85027

== ENCOUNTER → 2023-03-07 | Outpatient (CLI) | payer BC, SELFPAY ==
--- NOTE | 2023-03-07 | PROSBIL_PTH ---
PATIENT: STORMY SAVAGE LOC: [facility] U#:[id number] AGE/SX: 62/M ROOM: RE03/07/[address]: Dr. Imtiaz Sanches MD : 1960 BED: DIS: 03/07/2023 SPEC #: [id number] RECD: 03/10/23 09:32 STATUS: MATILDA RERobin #: [id number] SONNY: 03/07/23 00:[address]: Imtiaz Sanches DEPT: SURGICAL PATHOLOGY RECD BY: Faiza Singh ENTERED: 03/10/23 09:33 SP TYPE: PROST BX KOKI DR: Dr. Betty Santoro, [facility] Tissues: A - PROSTATE RIGHT B - PROSTATE RIGHT C - PROSTATE RIGHT D - PROSTATE LEFT E - PROSTATE LEFT F - PROSTATE LEFT Procedures: PROSTATE BX HEADER OPERATION: Bilateral ultrasound-guided prostate biopsy PRE-OP DIAGNOSIS: Elevated PSA TISSUE SUBMITTED: A - Right base, B - Right mid, C - Right apex, D - Left base, E - Left mid, F - Left apex MICROSCOPIC DIAGNOSIS A. Right prostate, base, core biopsy: Mild chronic inflammation and focal glandular atrophy. B. Right prostate, mid, core biopsy: Mild chronic inflammation and focal acute inflammation. C. Right prostate, apex, core biopsy: Glandular atrophy and mild chronic inflammation. D. Left prostate, base, core biopsy: Focal glandular atrophy and mild chronic inflammation. See comment. E. Left prostate, mid, core biopsy: Mild chronic inflammation and focal acute inflammation. F. Left prostate, apex, core biopsy: Mild chronic inflammation. AM:bogdan 03/11/2023 COMMENT D. Immunohistochemistry ([id number]) supports the above diagnosis. MICROSCOPIC DESCRIPTION Slides are reviewed. GROSS DESCRIPTION A - Received is one container designated prostate, right base. The specimen consists of three elongated fragments of light mead-white soft tissue measuring 1.5 to 2.0 cm in length and 0.1 cm in diameter. The specimen is totally submitted in one cassette. B - Received is one container designated prostate, right mid. The specimen consists of two elongated fragments of light mead-white soft tissue measuring 1.3 and 1.7 cm in length and 0.1 cm in diameter. The specimen is totally submitted in one cassette. C - Received is one container designated prostate, right apex. The specimen consists of two elongated fragments of light mead-white soft tissue measuring 1.0 and 1.5 cm in length and 0.1 cm in diameter. The specimen is totally submitted in one cassette. D - Received is one container designated prostate, left base. The specimen consists of three elongated fragments of light mead-white soft tissue measuring 1.0 to 2.0 cm in length and 0.1 cm in diameter. The specimen is totally submitted in one cassette. E - Received is one container designated prostate, left mid. The specimen consists of two elongated fragments of light mead-white soft tissue each measuring 2.0 cm in length and 0.1 cm in diameter. The specimen is totally submitted in one cassette. F - Received is one container designated prostate, left apex. The specimen consists of two elongated fragments of light mead-white soft tissue each measuring 2.0 cm in length and 0.1 cm in diameter. The specimen is totally submitted in one cassette. / SJ:rg 03/10/2023 TC:2 CPT: 39211 x6
--- NOTE | 2023-03-07 | IMM_PTH ---
PATIENT: STORMY SAVAGE LOC: [facility] U#:[id number] AGE/SX: 62/M ROOM: RE03/07/[address]: Dr. Imtiaz Sanches MD : 1960 BED: DIS: 03/07/2023 SPEC #: [id number] RECD: 03/11/23 12:57 STATUS: MATILDA REQ #: [id number] SONNY: 03/07/23 00:[address]: Imtiaz Sanches DEPT: IMMUNOHISTOCHEMISTRY RECD BY: Supriya Baker ENTERED: 03/11/23 12:58 SP TYPE: IMMUNO OTHR DR: Dr. Betty Santoro DO Tissues: D - PROSTATE LEFT Procedures: P40 (add) 34BE12 (initial) PHYSICIAN & INSTITUTION [place] [id number] SPECIMEN INFORMATION: Tissue Source: D - Left prostate, base, core biopsy Clinical Info: Elevated PSA Specimen Number: [id number] CPT code: 19399, 36743 METHODOLOGY: Deparaffinized sections of prefer/formalin-fixed tissue or PAP/DQ stained slides are incubated with monoclonal/polyclonal antibodies/oligonucleotide probes. Localization is made via biotin free immunoperoxidase method. Appropriate controls are performed and reacted as expected. Results on target cell population are indicated in the following table: RESULTS: ANTIBODY / CLONE RESULT Block D 34BE12 (34BE12) positive P40 (BC28) positive These tests were developed and their performance characteristics determined by [facility]. They may not have been cleared or approved by the [place]. Food and Drug Administration. The FDA has determined that such clearance or approval is not necessary. The above immunohistochemical/dualISH markers are ordered and reviewed by the Pathologist. INTERPRETATION: Miri Left prostate, base, core biopsy: Benign prostatic parenchyma. AM:bogdan 03/12/2023
== END | disposition home or self-care (01) ==
LOC: LABSPEC 15:30
PROVIDERS: PCP Internal Medicine; Referring Provider Urology; Visit Provider Urology
DX: R97.20 Elevated prostate specific antigen [PSA] (principal); N41.9 Inflammatory disease of prostate, unspecified
CPT/HCPCS: 88305; 88341; 88342; G0416

== ENCOUNTER → 2023-06-23 | Outpatient (CLI) | payer MEDICARE, BC, SELFPAY ==
--- NOTE | 2023-06-23 14:07 | ECHOD_ITS ---
Reason For Study: PERICARDIAL EFFUSION Procedure This was a 2D Doppler, Color Flow transthoracic echocardiogram. Exam performed in department. Left Ventricle Normal LV size. Left ventricular systolic function is normal. The estimated ejection fraction is 75 %. No regional wall motion abnormalities noted. Right Ventricle Normal RV size. Normal systolic function. Atria Normal left atrium. Normal right atrium. Mitral Valve Normal mitral valve. Tricuspid Valve Normal tricuspid valve. Mild to moderate (1-2+) tricuspid valve insufficiency. Pulmonary artery systolic pressure is 36 mmHg. Aortic Valve Trisinus/trileaflet aortic valve. Pulmonic Valve Normal pulmonic valve. Great Vessels Normal aortic root. The pulmonary artery is normal size. Normal inferior vena cava. Pericardium/Pleural No pericardial effusion. MMode/2D Measurements & Calculations LVIDd: 4.8 cm IVSd: 1.2 cm Ao root diam: 3.0 cm LVIDs: 2.7 cm LVPWd: 0.96 cm RVDd: 3.4 cm FS: 42.8 % LAV(MOD-bp): 57.6 ml LVAd ap4: 29.0 cm2 SV(MOD-sp4): 62.5 ml LAV(MOD-bp) Indexed: 26.8 ml/m2 LVLd ap4: 8.2 cm LAV(MOD-sp2): 62.2 ml EDV(MOD-sp4): 83.7 ml LAV(MOD-sp4): 52.2 ml EDV(sp4-el): 87.1 ml LVAs ap4: 12.3 cm2 LVLs ap4: 6.1 cm ESV(MOD-sp4): 21.2 ml ESV(sp4-el): 21.0 ml EF(MOD-sp4): 74.6 % EF(sp4-el): 75.9 % SV(sp4-el): 66.1 ml LA A4 area: 18.9 cm2 LA dimension(2D): 3.4 cm RA A4 area: 16.7 cm2 TAPSE: 2.9 cm Time Measurements MV dec time: 0.21 sec Doppler Measurements & Calculations MV E max van: 91.3 cm/sec Lat Peak E' Van: 10.5 cm/sec Med Peak E' Van: 9.6 cm/sec MV A max van: 76.7 cm/sec E/E' lat: 8.7 E/E' med: 9.5 MV E/A: 1.2 MV V2 max: 90.0 cm/sec Ao V2 max: 168.5 cm/sec MV max P.2 mmHg MV dec slope: 436.6 cm/sec2 Ao max P.4 mmHg MV V2 mean: 53.1 cm/sec Ao V2 mean: 109.9 cm/sec MV mean P.3 mmHg Ao mean P.7 mmHg MV V2 VTI: 35.4 cm Ao V2 VTI: 35.3 cm AV (velocity ratio): 0.76 LV V1 max: 131.0 cm/sec PA V2 max: 139.1 cm/sec TR max van: 286.2 cm/sec LV V1 max P.9 mmHg PA V2 mean: 107.9 cm/sec TR max P.8 mmHg LV V1 mean P.4 mmHg LV V1 mean: 85.3 cm/sec LV V1 VTI: 26.7 cm ECHO/Echo Complete Interpretation Summary Normal LV size. Left ventricular systolic function is normal. The estimated ejection fraction is 75 %. Pulmonary artery systolic pressure is 36 mmHg. Ordering Physician: Moiz Ramsey Referring Physician: Moiz Ramsey Performed By: Kimberly Benjamin RCS
== END | disposition home or self-care (01) ==
LOC: CVS 14:04
PROVIDERS: PCP Internal Medicine; Referring Provider Internal Medicine Cardiovascular Disease; Visit Provider Internal Medicine Cardiovascular Disease
DX: I95.1 Orthostatic hypotension (principal)
CPT/HCPCS: 93306

== ENCOUNTER → 2023-07-21 | Outpatient (CLI) | payer MEDICARE, BC, SELFPAY | END | disposition home or self-care (01) | LOC: LAB 15:37 | PROVIDERS: PCP Internal Medicine; Referring Provider Urology; Visit Provider Urology | DX: N40.1 Benign prostatic hyperplasia with lower urinary tract symptoms (principal) | CPT/HCPCS: 36415; 84153 ==

== ENCOUNTER → 2023-10-17 | Outpatient (CLI) | payer MEDICARE, BC, SELFPAY ==
--- OUTSIDE RECORDS SUMMARY | 2023-10-17 18:04 | XMS RPT_ITS | CCD ---
Author Name Unknown Address [id number] [place] [address] Organization [facility] Care Team Providers Care Cooker Sulfite Name Role Phone Fast DO, Betty A Unavailable DYAN PALM DO Primary Care Physician Eden Hoyt CMA Unavailable Unavailable Unavailable Unavailable Fast DO, Betty A Unavailable Talib Rios LPN Unavailable Unavailable Fast DO, Betty A Attending Unavailable Fast DO, Betty A Consulting Unavailable FAST, BETTY A Attending Unavailable FAST, BETTY A Primary Care Unavailable Roxy GORE, Moiz Jay Unavailable MARITZA YARBROUGH Referring Unavailable Medications Completed/Discontinued Medications Medication Drug Class(es) Dates Sig (Normalized) Sig (Original) cholecalciferol 0.05 mg oral tablet (10 sources) Vitamin D Start: 01-06-2023 take 3 tablets by mouth once daily Vitamin D3 50 mcg (2,000 unit) oral tablet 3 (three) tablet qd for 0 days Quantity: 90 {Tablet} Refills: 0 Ordered: 14-Apr-2023 Eden Hoyt CMA Start : 06-Jan-2023 Active DULoxetine 30 mg delayed release oral capsule (20 sources) Serotonin and Norepinephrine Reuptake Inhibitor Start: 02-21-2022 End: 01-06-2023 take 1 capsule by mouth once daily at mealtime DULoxetine 30 mg oral capsule,delayed release (enteric coated) 1 (one) Capsule qd in evening with food for 30 days Quantity: 30 {Capsule} Refills: 6 Ordered: 06-Jan-2023 Fast DO, Betty A Fast DO, Betty A Start : 21-Feb-2022 End : 06-Jan-2023 Inactive Problems Active Problems Problem Classification Problem Date Documented Da te Episodic/Chronic Allergic reactions (20 sources) Allergic reaction; Translations: [Allergic reaction] Resolved: 01-06-2023 10-16-2021 Episodic Diabetes mellitus without complication (20 sources) High hemoglobin A1c level; Translations: [Elevated hemoglobin A1c] 01-06-2023 Episodic Past or Other Problems Problem Classification Problem Date Documented Da te Episodic/Chronic Unclassified (20 sources) [facility] WELLNESS EXAM 06-18-2021 Unclassified (10 sources) Unspecified Diagnosis 06-04-2021 Unclassified (8 sources) Encounter for screening for COVID-19 Unclassified (8 sources) BMI 29.0-29.9,adult Unclassified (8 sources) Orr's neuroma, left Unclassified (8 sources) BMI 31.0-31.9,adult Unclassified (8 sources) Brain fog Unclassified (8 sources) Orr's neuroma, right Unclassified (8 sources) Rib pain on left side Viral infection (20 sources) Disease caused by 2019-nCoV NEGATED: Highlighted row has been ruled out!Residual codes; unclassified (1 source) Disease Episodic NEGATED: Highlighted row has been ruled out!Unclassified (20 sources) Problem Onset: 03-28-2021 06-18-2021 Results Test Name Value Interpretation Reference Range Facil ity Vital Signs Date Time Vital Sign Value Performing Clinician Facility 04-14-2023 13:10-0400 Body height 177.8 cm Eden Hoyt [facility] Comprehensiv e Internal Medicine; [facility] Work Phone: 04-14-2023 13:10-0400 Body mass index (BMI) [Ratio] 30.87 kg/m2 [facility]; [facility] Work Phone: 04-14-2023 13:10-0400 Body surface area Derived from formula 2.15 m2 [facility]; [facility] Work Phone: 04-14-2023 13:10-0400 Body temperature 97.5 [degF] [facility]; [facility] Work Phone: Encounters Encounter Date Encounter Type Care Provider Facility Start: 10-15-2023 ambulatory MARITZA YARBROUGH Facility: [facility] Start: 04-14-2023 End: 04-15-2023 Office outpatient visit 25 minutes Betty Fast DO Work Phone: [facility] Start: 04-14-2023 Review Betty Fast DO Work Phone: [facility] Start: 01-28-2023 ambulatory BETTY A FAST Facility:[id number] 509 Start: 01-06-2023 ambulatory Betty A Fast DO Compreh ens[facility] Start: 01-06-2023 Review Betty Fast DO Work Phone: [facility] Start: 01-06-2023 End: 01-06-2023 Patient encounter procedure Betty Fast DO Work Phone: [facility] Start: 10-02-2022 Review Betty Fast DO Work Phone: [facility] Start: 10-02-2022 End: 10-03-2022 Office outpatient visit 15 minutes Betty Fast DO Work Phone: [facility] Start: 09-18-2022 End: 09-23-2022 Office outpatient visit 25 minutes Betty Fast DO Work Phone: [facility] Start: 02-21-2022 End: 02-21-2022 Office outpatient visit 5 minutes Betty Fast DO Work Phone: [facility] Start: 10-02-2021 End: 10-04-2021 Office outpatient visit 25 minutes Betty Fast DO Work Phone: [facility] Start: 09-06-2021 End: 09-06-2021 Phone Encounter Betty Fast DO Work Phone: [facility] Start: 08-13-2021 End: 08-13-[address] OLIVER ALCALA MD [facility] Start: 06-18-2021 Review Betty Fast DO Work Phone: [facility] Start: 06-04-2021 End: 02-01-2022 Phone Encounter Betty Fast DO Work Phone: [facility] Start: 06-04-2021 Review Betty Fast DO Work Phone: [facility] Start: 03-28-2021 End: 04-02-2021 Office outpatient visit 25 minutes Betty Fast DO Work Phone: [facility] Start: 09-11-2018 End: 09-13-2018 Patient encounter procedure [facility] Start: 12-05-2017 End: 12-05-2017 Patient encounter procedure [facility] Procedures Date Procedure Procedure Detail Performing Clinician Start: 06-23-2023 End: 06-23-2023 Echo Complete Procedure Note: See Note; NOTES: [facility] [address] [place] [address] Echo Complete 06/23/23 1429 MR#: [id number] Acct: [id number] Name: RICKY SAVAGE Rep #: [id number] : 1960 63 From: Moiz Ramsey MD Attending Dr: Dr. Moiz Ramsey MD Status: OTILIO GILLESPIE Ordering Dr: Moiz Ramsey MD Date: 06/23/23 Location: [facility] Sex: M C Admitted: Reason For Study: PERICARDIAL EFFUSION Procedure This was a 2D Doppler, Color Flow transthoracic echocardiogram. Exam performed in department. Left Ventricle Normal LV size. Left ventricular systolic function is normal. The estimated ejection fraction is 75 %. No regional wall motion abnormalities noted. Right Ventricle Normal RV size. Normal systolic function. Atria Normal left atrium. Normal right atrium. Mitral Valve Normal mitral valve. Tricuspid Valve Normal tricuspid valve. Mild to moderate (1-2+) tricuspid valve insufficiency. Pulmonary artery systolic pressure is 36 mmHg. Aortic Valve Trisinus/trileaflet aortic valve. Pulmonic Valve Normal pulmonic valve. Great Vessels Normal aortic root. The pulmonary artery is normal size. Normal inferior vena cava. Pericardium/Pleural No pericardial effusion. MMode/2D Measurements Calculations LVIDd: 4.8 cm IVSd: 1.2 cm Ao root diam: 3.0 cm LVIDs: 2.7 cm LVPWd: 0.96 cm RVDd: 3.4 cm FS: 42.8 % LAV(MOD-bp): 57.6 ml LVAd ap4: 29.0 cm2 SV(MOD-sp4): 62.5 ml LAV(MOD-bp) Indexed: 26.8 ml/m2 LVLd ap4: 8.2 cm LAV(MOD-sp2): 62.2 ml EDV(MOD-sp4): 83.7 ml LAV(MOD-sp4): 52.2 ml EDV(sp4-el): 87.1 ml LVAs ap4: 12.3 cm2 LVLs ap4: 6.1 cm ESV(MOD-sp4): 21.2 ml ESV(sp4-el): 21.0 ml EF(MOD-sp4): 74.6 % EF(sp4-el): 75.9 % SV(sp4-el): 66.1 ml LA A4 area: 18.9 cm2 LA dimension(2D): 3.4 cm RA A4 area: 16.7 cm2 TAPSE: 2.9 cm Time Measurements MV dec time: 0.21 sec Doppler Measurements Calculations MV E max van: 91.3 cm/sec Lat Peak E' Van: 10.5 cm/sec Med Peak E' Van: 9.6 cm/sec MV A max van: 76.7 cm/sec E/E' lat: 8.7 E/E' med: 9.5 MV E/A: 1.2 MV V2 max: 90.0 cm/sec Ao V2 max: 168.5 cm/sec MV max P.2 mmHg MV dec slope: 436.6 cm/sec2 Ao max P.4 mmHg MV V2 mean: 53.1 cm/sec Ao V2 mean: 109.9 cm/sec MV mean P.3 mmHg Ao mean P.7 mmHg MV V2 VTI: 35.4 cm Ao V2 VTI: 35.3 cm AV (velocity ratio): 0.76 LV V1 max: 131.0 cm/sec PA V2 max: 139.1 cm/sec TR max van: 286.2 cm/sec LV V1 max P.9 mmHg PA V2 mean: 107.9 cm/sec TR max P.8 mmHg LV V1 mean P.4 mmHg LV V1 mean: 85.3 cm/sec LV V1 VTI: 26.7 cm ECHO/Echo Complete Interpretation Summary Normal LV size. Left ventricular systolic function is normal. The estimated ejection fraction is 75 %. Pulmonary artery systolic pressure is 36 mmHg. Ordering Physician: Moiz Ramsey Referring Physician: Moiz Ramsey Performed By: Kimberly Benjamin RCS 06/23/237 Date Moiz Ramsey MD CC: Dr. Moiz Ramsey MD; Dr. Betty Santoro, Date Dictated: 06/23/23 1429 Date Transcribed: 06/23/231656 Editorial Project Manager: Signed Moiz Ramsey MD Work Phone: Start: 06-11-2023 End: 06-21-2023 12 Lead EKG performed by [facility]MS Procedure Note: See Note; NOTES: [facility] [address] [place] [address] 12 Lead EKG performed by BMS 06/11/23 1130 MR#: [id number] Acct: [id number] Name: RICKY SAVAGE Rep #: [id number] : 1960 63 From: Moiz Ramsey MD Attending Dr: Dr. Moiz Ramsey MD Status: DEP A MB Ordering Dr: Moiz Ramsey MD Date: 06/11/23 [place] [facility] [place] Sex: M C Admitted: [facility]/12 Lead EKG performed by [facility] Sinus Rhythm -RSR(V1) -nondiagnostic. PROBABLY NORMAL 06/11/23 1724 <Electronically signed by Moiz Ramsey MD> Date Moiz Ramsey MD CC: Dr. Betty Santoro, Date Dictated: 06/11/23 1130 Date Transcribed: 06/11/23 113 Editorial Project Manager: [place] Signed Moiz Ramsey MD Work Phone: Start: 06-11-2023 End: 06-11-2023 Cardiology Visit Report Procedure Note: See Note; NOTES: [facility] [address] [place] [address] OFFICE VISIT Date of Service: 06/11/23 MR#: [id number] Acct: [id number] Name: RICKY SAVAGE Rep #: [id number] : 1960 Provider: Dr. Moiz Ramsey MD Age/Sex: 63/M Location: [facility] Status: Signed HPI HPI History of Present Illness Details: 63-year-old man with no previous cardiac history who presents for an evaluation after a coronary calcium score test was performed. He apparently has no significant risk factors and denies any chest pain or shortness of breath or paroxysmal nocturnal dyspnea or pedal edema. He has had no neck arm or jaw discomfort suggest angina. He does have an elevated lipid profile. His coronary calcium score was noted to be 0 but he was noted to have a small pericardial effusion as well as a thickened pericardium. He was sent to cardiology for further evaluation and management. He denies any swelling in his neck and has not had any pedal edema as well. He does not remember that he was exposed to any significant toxic agents like asbestos. He does not remember any exposure to tuberculosis. Of note is the fact that his father also had a thickened pericardium and required a pericardiectomy. Intake Vital Signs 07/15/20 14:52 06/11/23 11:30 Height 5 ft 10 in 5 ft 10 in Weight: 218 lb BMI 31.2 Blood Pressure Location Lt brachial Position Sitting Respiration 16 Pulse 74 Pulse Source Monitor Intake Visit Reasons: EST (FAST) Formula Bottler Required: No Accompanied by: Self Is patient in pain?: No Allergies No Known Allergies Allergy (Verified 06/11/23 11:32) Medications cholecalciferol (vitamin D3) 50 mcg (2,000 unit) tablet 6,000 unit PO DAILY 05/05/23 [History Confirmed 05/05/23] epinephrine 0.3 mg/0.3 mL injection, auto-injector (EpiPen 2-Gutierrez) 0.3 mg IM ONCE PRN 05/05/23 [History Confirmed 05/05/23] multivitamin 1 tab PO DAILY 06/11/23 [History Confirmed 06/11/23] [facility] Medical History Dupuytren's contracture Hiatal hernia Hyperlipidemia Orr's neuroma Orthostasis Thyroid nodule Vitamin B12 deficiency Vitamin D deficiency Family History Father Alzheimers disease Bladder cancer Cirrhosis of liver Restrictive cardiomyopathy Mother Obesity MRSA infection Social History Smoking Status: Former smoker how long ago did patient quit smokin years ago alcohol intake: current substance use type: does not use caffeine: Yes ROS Const Const: Negative for fatigue, weakness, headache(s), daytime sleepiness or difficulty sleeping Eyes Eyes: Negative for change in vision ENT ENT: Positive for dizziness (with position changes); Negative for headache(s) or Nosebleed/epistaxis Cardio Chest Pain: Yes Frequency: monthly Character: sharp Onset: other (believes due to stress at work) Location: mid sternal Duration: minutes Exacerbation: activity Palpitations: No Edema: None Resp Respiratory: Negative for SOB with activity, SOB at rest, SOB orthopnea SOB lying down or Cough GI GI: Negative nausea, vomiting or heartburn Musc Musc: Positive for muscle aches/ myalgia (arms go numb while walking ) Neuro Neuro: Positive for dizziness (with position changes); Negative for lightheadedness, near syncope, headache(s) or weakness Endo Endo: Negative for fatigue Cardiology Exam Const Appearance: cooperative, healthy appearing, no acute distress, well developed and well groomed Nutritional Appearance: average body habitus and well nourished Orientation: alert, awake and oriented x3 Head Head: normal to inspection, normocephalic and atraumatic Ears: hearing grossly normal bilaterally and external ears normal Nose: external nose normal, nares normal, nasal mucous membranes and turbinates normal, septum normal and no nasal discharge Face and Sinus: face symmetric Mouth: oral mucosae normal, tongue normal, oropharynx normal and moist mucous membranes Teeth and gingiva: dentition normal Throat: posterior oropharynx normal, tonsils normal and uvula midline Eyes General: appearance normal, both eyes and all related structures Eyelids: eyelids normal Conjunctivae: conjunctivae normal Pupils: PERRL, normal by confrontation and accommodation normal EOM: EOM intact bilaterally Neck Neck: normal visual inspection, trachea midline and no JVD JVD: +5 Carotids: normal carotid upstroke and bounding pulses Chest Chest inspection: normal inspection of the chest, symmetric chest movement and normal respiratory effort Auscultation: Bilateral: Clear to Auscultation Cardio Palpation: normal PMI Rate: regular rate Rhythm: regular rhythm Heart sounds: S1 normal, S2 normal and normal, physiologic split S2; Negative rub, gallop or murmur GI GI: normal to inspection, soft, no hepatosplenomegaly and bowel sounds present Neuro General: patient alert, patient awake, patient oriented x3, gait normal, moves all extremities and no focal sensory deficit Skin Skin: no rashes or lesions noted Extremities Pulses: Normal: Right Femoral Pulse, Left Femoral Pulse, Right Dorsalis Pedis Pulse, Left Dorsalis Pedis Pulse, Right Posterior Tibial Pulse, Left Posterior Tibial Pulse, Right Radial Pulse and Left Radial Pulse Lower Extremity Edema: None: Bilateral Musculoskel Musculoskeletal: No joint tenderness Psych Psychological: normal affect Supplemental Info Supplemental Information Stress echo 12/22/2017 Interpretation Summary Normal resting LV systolic function. Nonstenotic valves. With stress, the LV size decreased and all segments augmented normally. The LVEF increased from 60% to 65%. Negative for ischemia at 99% of MPHR and at 10.4 METS. Normal stress echo at a high workload. Labs: No Data to Display Diagnostics: Electrocardiogram Stress Echocardiogram Chest X-Ray Abdomen/Pelvis CT Pulmonary: No Data to Display Past Visits: Cardiology Visit 06/11/23 Assessment and Plan Assessment and Plan (1) Abnormal cardiac CT angiography: Status: Acute Comment: Pericardial thickening Plan: He does have evidence of pericardial thickening the etiology of which is unclear at this time. I will initially recommend that we obtain an echocardiogram to look at the physiology. Ultimately he may benefit from a cardiac MRI if no significant abnormality is found. At this particular time he appears to be asymptomatic and therefore we will not institute any therapy. Thank you for allowing me to participate in the care of your patient. Please don't hesitate to call if any issues arise. 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) Coding Level of Care Code Off vis,new,level [address] angiography R93.1 Coding Level of Care Code Off vis,new,level [address] angiography R93.1 06/11/23 1724 <Electronically signed by Moiz Ramsey MD> Date Moiz Ramsey MD Cosigner Signature: Date (if applicable) CC: DO Betty Chavez DO Work Phone: Start: 02-20-2023 End: 02-23-2023 Pelvis W/WO Contrast Procedure Note: See Note; NOTES: [facility] Imaging Services [address] [place] [address] Pelvis W/WO Contrast MR#: [id number] Acct: [id number] Name: RICKY SAVAGE Rep #: [id number] : 1960 M 62 From: Sujit hernádnez MD PCP: Dr. Betty Santoro, Status: REG CLI Study: Pelvis W/WO Contrast Date of Exam: 02/20/23 Exam# [id number] Ordering Dr: Imtiaz Sanches MD MR Pelvis WO/W Contrast 02/20/2023 6:04 PM COMPARISON: None CLINICAL HISTORY: 62-year-old man with elevated PSA TECHNIQUE: Standard prostate MR protocol was used before and after administration of 20 cc of IV Clariscan. FINDINGS: Prostate volume: 37 cc PSA density: PSA level not provided Length of membranous urethra: 17 mm Post-biopsy hemorrhage: None Multiparametric MR evaluation: Heterogeneous appearance of the central gland is consistent with benign prostatic hyperplasia. 0.9 cm T2 dark wedge-shaped area in the left posterolateral peripheral zone from mid gland to apex is not bright on DWI and most likely represents prostatitis. Lesion 1: LOCATION - a 1.8 x 1.3 x 1.0 cm heterogeneous T2 dark lesion in the left anterior transitional zone from mid gland to base. It is moderately bright on T2 WI and moderately dark on ADC map. T2 - 3 DWI - 3 DCE - inconclusive Overall PI-RADS v2 score = 4 Lesion 2: LOCATION - a 2.4 x 1.7 x 1.8 cm moderately T2 hypointense lesion in the right anterior transitional zone from mid gland to base. It has high DWI signal and dark on ADC. T2 - 5 DWI - 5 DCE - inconclusive Overall PI-RADS v2 score = 5 Capsular margin and neurovascular bundle: No obvious microcapsular extension. There is microcapsular extension of both lesions 1 and 2 laterally. Seminal vesicles: No obvious extension. Lymph nodes: 0.8 cm prominent left external iliac node. Bones: No suspicious lesions in the field of view. MRI/Pelvis W/WO Contrast IMPRESSION: --1.8 cm PI-RADS 4 lesion in the left anterior TZ from mid gland to base. --2.4 cm PI-RADS 5 lesion in the right anterior TZ from mid gland to base. - No evidence of macroscopic extracapsular extension. There is microcapsular extension by both lesions 1 and 2 laterally. - No evidence of seminal vesicle invasion. - 0.8 cm prominent left external iliac node. - No suspicious bone lesions. --Benign prostatic hyperplasia --Likely prostatitis in the left PZ Electronically Signed: Sujit Renee MD at 0:07 EDT , CC: Dr. Betty Santoro DO; Dr. Imtiaz Sanches MD Editorial Project Manager: Signed Betty Santoro DO Work Phone: Start: 01-16-2023 End: 01-16-2023 Thyroid Procedure Note: See Note; NOTES: [facility] Imaging Services [address] [place] [address] Thyroid MR#: [id number] Acct: [id number] Name: RICKY SAVAGE CARI Rep #: [id number] : 1960 M 62 From: Orlin Sanchez MD PCP: Dr. Betty Santoro DO Status: REG CLI Study: Thyroid Date of Exam: 01/16/23 Exam# [id number] Ordering Dr: Betty Santoro DO STUDY: THYROID ULTRASOUND REASON FOR EXAM: Male, 62 years old. thyroid nodule -- thyroid nodule TECHNIQUE: Ultrasound evaluation of the thyroid was performed with real-time and static tuttle-scale imaging. COMPARISON: None. FINDINGS: RIGHT LOBE: The right lobe of the thyroid gland measures 5.6 x 2.1 x 2.1 cm. There is a homogeneous echotexture. There are no demonstrated solid, cystic or complex lesions. LEFT LOBE: The left lobe of the thyroid gland measures 4.8 x 2.2 x 1.7 cm. There is a homogeneous echotexture. There is a lower pole cystic nodule measuring 4 x 3 x 2 mm demonstrating regular margins and deny nodular vascularity ISTHMUS: The isthmus measures 3 mm . The regional lymph nodes are normal. US/Thyroid IMPRESSION: Tiny cystic nodule in the left lobe most likely benign. Recommend clinical correlation and follow-up studies Electronically Signed: Orlin Sanchez MD at 20:25 EDT Reading Location ID and State: [facility] / [place] , Service support , CC: Dr. Betty Santoro DO Editorial Project Manager: Signed Betty Santoro DO Work Phone: Start: 09-18-2022 End: 09-18-2022 Chest PA and Lateral Procedure Note: See Note; NOTES: [facility] Imaging Services [address] [place] [address] Chest PA and Lateral MR#: [id number] Acct: [id number] Name: PAZFarrahRICKY CARI Rep #: [id number] : 1960 M 62 From: Ivan Horton MD PCP: Dr. Betty Santoro DO Status: REG CLI Study: Chest PA and Lateral Date of Exam: 09/18/22 Exam# [id number] Ordering Dr: Betty Santoro DO EXAM: XR CHEST, 2 VIEWS CLINICAL INDICATION: chest tightness TECHNIQUE: Frontal and lateral views of the chest. This report was created using [employer] report generation technology. COMPARISON: 03/28/2021 FINDINGS: LUNGS AND PLEURAL SPACES: Unremarkable. No consolidation or edema. No pneumothorax. No effusion. HEART: Unremarkable. Cardiac silhouette not enlarged. MEDIASTINUM: Central airways and mediastinal contour are unremarkable. BONES/JOINTS: Unremarkable. SOFT TISSUES: Unremarkable. RAD/Chest PA and Lateral IMPRESSION: No radiographic evidence of acute cardiopulmonary disease. Electronically Signed: Ivan Horton MD at 16:26 EST , CC: Dr. Betty Santoro DO Editorial Project Manager: Signed Betty Santoro DO Work Phone: Start: 08-13-[address] OLIVER ALCALA MD Start: 03-28-2021 End: 03-28-2021 Ribs Unil 2V No CXR Comments: See Note; NOTES: [facility] [address] [place] [address] Ribs Unil 2V No CXR MR#: [id number] Acct: [id number] Name: RICKY SAVAGE Rep #: [id number] : 1960 M 61 From: Rita Elise MD PCP: Babita Kumar, YURI-C Status: DEP AMB Study: Ribs Unil 2V No CXR Date of Exam: 03/28/21 Exam# [id number] Ordering Dr: Betty Santoro DO STUDY: X-RAY - UNILATERAL RIBS ( LEFT ) REASON FOR EXAM: Male, 61 years old. Pain TECHNIQUE: 4 view(s) of the ribs. COMPARISON: None. FINDINGS: Normal visualized ribs without a demonstrated fracture. The visualized lung is clear and expanded. RAD/Ribs Unil 2V No CXR IMPRESSION: Normal x-ray examination of the ribs. Electronically Signed: Rita Elise MD at 16:05 EDT , Service support , CC: VENKATA Kumar; Dr. Betty Santoro DO Editorial Project Manager: Signed Betty Santoro DO Work Phone: Start: 03-28-2021 End: 03-28-2021 Chest PA and Lateral Comments: See Note; NOTES: [facility] [address] [place] [address] Chest PA and Lateral MR#: [id number] Acct: [id number] Name: RICKY SAVAGE Rep #: [id number] : 1960 M 61 From: Rita Elise MD PCP: VENKATA Rodriguez Status: DEP AMB Study: Chest PA and Lateral Date of Exam: 03/28/21 Exam# [id number] Ordering Dr: Betty Santoro DO STUDY: X-RAY CHEST REASON FOR EXAM: Male, 61 years old. Pain TECHNIQUE: 2 views COMPARISON: Prior chest radiograph of 07/15/2020 and 09/11/2018 FINDINGS: The lungs are clear and expanded. There is no demonstrated pleural abnormality. Normal size heart. Normal mediastinum and lyle. Normal visualized pulmonary arteries. Normal visualized aortic arch and descending thoracic aorta. There are diffuse degenerative changes of the visualized thoracic spine. Normal visualized ribs, clavicles, and shoulders. There is no demonstrated abnormality of the visualized soft tissue structures of the upper abdomen. RAD/Chest PA and Lateral IMPRESSION: No acute cardiopulmonary findings or changes. Negative for consolidation, atelectasis, pleural effusion or cardiomegaly. Electronically Signed: Rita Elise MD at 16:04 EDT , Service support , CC: VENKATA Kumar; Dr. Betty Santoro DO Editorial Project Manager: Signed Betty Santoro DO Work Phone: Start: 03-28-2021 End: 03-28-2021 No Known Past Surgical History Eden Hoyt CMA Plan of Treatment Date Care Activity Detail Author Start: 04-14-2023 Procedure Education Eprescribed prescriptions (G8553) [facility] Work Phone: Start: 04-14-2023 25 hydroxy includes fractions if performed Vitamin D Hydroxy (85997) [facility] Work Phone: Start: 04-14-2023 Lipid panel LIPID PANEL (44030) [facility] Work Phone: Start: 04-14-2023 Blood count complete auto&auto difrntl wbc CBC with auto diff (09570) [facility]; [facility] Work Phone: Start: 04-14-2023 Hemoglobin glycosylated a1c HGB A1C (53504) [facility]; [facility] Work Phone: Start: 04-14-2023 Comprehensive metabolic panel METABOLIC PANEL, COMPREHENSIVE (35016) [facility]; [facility] Work Phone: Start: 04-14-2023 Cyanocobalamin vitamin b-12 VITAMIN B12 AND FOLATES (37364) [facility]; [facility] Work Phone: Start: 04-24-2023 Procedure Education Eprescribed prescriptions (G8553) [facility]; [facility] Work Phone: Start: 01-06-2023 25 hydroxy includes fractions if performed Vitamin D Hydroxy (58808) [facility]; [facility] Work Phone: Start: 01-06-2023 Urine albumin quantitative MICROALBUMIN: CREATININE RATIO (58984) AND (26455) [facility]; [facility] Work Phone: Payers Date Payer Category Payer Medicare [id number] 2023 Medicare [id number] 2022 Unknown [id number] 1960 Unknown [id number] 1960 Unknown [id number] Unknown Unknown Social History Date Type Detail Facility Start: 08-13-2021 Never smoked t obacco (finding) [facility]igned At [facility] Alcohol Use: Alcohol Use: [facility] Work Phone: Caffeine Use Caffeine Use [facility] Work Phone: Clinical Notes 03-12-2021 to 10-15-2023 Note Date & Type Note Facility 10-15-2023 Note HNO ID: [id number] Author: ROSY DUBOSE RT(R) Service: Radiology Author Type: Technologist Type: Progress Notes Filed: 10/15/2023 16:22 Note Text: Radiology Service Progress Note DATE OF SERVICE: October 15, 2023 TIME: 4:21 PM PATIENT IDENTITY VERIFICATION COMPLETED USING TWO (2) STANDARD IDENTIFIERS: Name and Date of confirmed by patient verbally and Name and Date of confirmed by identification band. FALL SCREENING: Has the patient had 2 falls in the last year or 1 fall with injury or currently using an Ambulatory Assistive Device (Walker, Cane, Wheelchair, Crutches, etc.)? No PATIENT GENDER DATA: Male PATIENT RELEVANT IMPLANT DATA REVIEWED: Not Applicable PATIENT PRESENTS WITH AN IMPLANTABLE OR ATTACHED HAY SORTER: No ALLERGIES: Reviewed and unchanged CONTRAST ALLERGY: NO. EXAM: MRI - CONTRAST TYPE: GROUP II PERIPHERAL IV DATA: Ambulatory: A peripheral IV was started in the Left antecubital site with a Angio cath: 22 gauge. RADIOLOGY DEPARTMENT: MR; Exam(s) Completed: Cardiac: Cardiac SIGNATURE: Rosy Friday, RT(R) PATIENT NAME: Ricky Savage DATE: October 15, 2023 TIME: 4:21 PM [facility] ADMISSION HISTORY A ND PHYSICIAL CHIEF COMPLAINT: HISTORY OF PRESENT ILLNESS: REVIEW OF SYSTEMS: ACTIVE PROBLEMS: (1) No Chronic Problems (NKP) MEDICATIONS: Active Inpt Meds: None Active PRN Meds: None One Time Meds: None Active IV Meds: Lactated Ringers Infusion 1,000 mL (LR 1,000 mL) Start: 08/13/21 7:58:00 EST, Rate: 50 mL/hr ALLERGIES: (1) NKA FAMILY HISTORY: SOCIAL HISTORY: PHYSICAL EXAM: VITALS: [id number](kg) 08/13 07:[id number] 95.5 24 Hr Tmax: 35.6 at 08/13 07:42 36 Hr Tmax: 35.6 at 08/13 07:42 Vital Signs are the last 5 in the past 48 hours. Weights display the last 5 within 7 days. Initial Wt: 08/13 95.5 kg 210 lb Current Wt: 08/13 95.5 kg 210 lb GENERAL: HEENT: CARDIOVASCULAR: RESPIRATORY: ABDOMEN: EXREMETIES: NEUROLOGICAL: PSYCHIATRIC: LABS: No 36hr Lab Data DIAGNOSTICS: IMPRESSION: PLAN: History and Physical Update I have examined the patient; reviewed the H&P and there are no changes to the H&P unless noted below. [facility] 11-29-2021 Hospital Discharge instructions Patient Education 08/13/2021 09:21:22 Colonoscopy, Adult, Care After Colonoscopy, Adult, Care After This sheet gives you information about how to care for yourself after your procedure. Your health care provider may also give you more specific instructions. If you have problems or questions, contact your health care provider. What can I expect after the procedure? After the procedure, it is common to have: A small amount of blood in your stool for 24 hours after the procedure. Some gas. Mild abdominal cramping or bloating. Follow these instructions at home: General instructions For the first 24 hours after the procedure: ?Do not drive or use machinery. ?Do not sign important documents. ?Do not drink alcohol. ?Do your regular daily activities at a slower pace than normal. ?Eat soft, vzpd-ov-gaknbg foods. Take qwnm-cef-fuwboad or prescription medicines only as told by your health care provider. Relieving cramping and bloating Try walking around when you have cramps or feel bloated. Apply heat to your abdomen as told by your health care provider. Use a heat source that your healthcare provider recommends, such as a moist heat pack or a heating pad. ?Place a towel between your skin and the heat source. ?Leave the heat on for 20 30 minutes. ?Remove the heat if your skin turns bright red. This is especially important if you are unable to feel pain, heat, or cold. You may have a greater risk of getting burned. Eating and drinking Drink enough fluid to keep your urine pale yellow. Resume your normal diet as instructed by your health care provider. Avoid heavy or fried foods thatare hard to digest. Avoid drinking alcohol for as long as instructed by your health care provider. Contact a health care provider if: You have blood in your stool 2 3 days after the procedure. Get help right away if: You have more than a small spotting of blood in your stool. You pass large blood clots in your stool. Your abdomen is swollen. You have nausea or vomiting. You have a fever. You have increasing abdominal pain that is not relieved with medicine. Summary After the procedure, it is common to have a small amount of blood in your stool. You may also have mild abdominal cramping and bloating. For the first 24 hours after the procedure, do not drive or use machinery, sign important documents, or drink alcohol. Contact your health care provider if you have a lot of blood in your stool, nausea or vomiting, a fever, or increased abdominal pain. This information is not intended to replace advice given to you by your health care provider. Make sure you discuss any questions you have with your health care provider. Document Released: 04/15/2005 Document Revised: 06/24/2018 Document Reviewed: 11/12/2016 [employer] Patient Education 2020 [employer]. Follow Up Care 07/13/2021 10:05:14 With:OLIVER ALCALA Address: [address] [address] [phone] Business (1) When: only if needed Comments:Dr. Alcala's office will send you a letter about the results of the polyp he removed today. You will need another colonoscopy in 5 years. [facility] 06-28-2021 NoteORIGINAL US SCROTUM CONTENTS with Duplex Doppler evaluation CLINICAL STATEMENT: LEFT TESTICULAR PAIN. COMPARISON: None FINDINGS: The size and echogenicity of the testicles are within normal limits and similar bilaterally. No focal nor diffuse abnormalities are seen. Color Doppler flow is seen in both testicles in a symmetric fashion. Spectral waveform analysis of the testicles shows low resistance arterial waveforms on both sides. There are small bilateral epididymal cysts that appear benign. Small bilateral hydroceles are present. Bilateral varicoceles are present, larger on the LEFT than on the RIGHT. No hernia into the scrotum is present. IMPRESSION: No testicular mass or torsion. Small bilateral hydroceles. Bilateral varicoceles. Interpreted By: Erick Benton MD Preliminary Report By: Erick Benton MD Electronically Signed By: Erick Benton MD Dictated Date: 03/12/2021 5:05:25 AM Prelim Date: 03/12/2021 5:05:25 AM Sign Date: 03/12/2021 5:07:46 AM Ordering Provider:[facility] (ID)Hospital course Narrative No data available for this section [facility] Instructions* Name Dates Details Patient Instructions Indication:Nonsmoker Start:18-Jun-2021 Instruction Type:Provider Instructions for Treatment How to Access Health Informa tion Online using Patient Portal and [employer]rd Democrat Apps Indication:Nonsmoker Start:18-Jun-2021 Instruction Type:Patient Education Patient Instructions Indication:Brain fog Start:28-Mar-2021 Instruction Type:Provider Instructions for Treatment How to Access Health Informa tion Online using Patient Portal and [employer] Apps Indication:Brain fog Start:28-Mar-2021 Instruction Type:Patient Education [facility]; [facility] Work Phone: instructions* Name Dates Details Patient Instructions Indication:Hyperlipidemia Start:02-Oct-2021 Instruction Type:Provider Instructions for Treatment How to Access Health Informa tion Online using Patient Portal and [employer] Apps Indication:Hyperlipidemia Start:02-Oct-2021 Instruction Type:Patient Education Patient Instructions Indication:Nonsmoker Start:18-Jun-2021 Instruction Type:Provider Instructions for Treatment How to Access Health Informa tion Online using Patient Portal and [employer] Apps Indication:Nonsmoker Start:18-Jun-2021 Instruction Type:Patient Education Patient Instructions Indication:Brain fog Start:28-Mar-2021 Instruction Type:Provider Instructions for Treatment How to Access Health Informa tion Online using Patient Portal and [employer] Apps Indication:Brain fog Start:28-Mar-2021 Instruction Type:Patient Education [facility]; [facility] Work Phone: instructions* Name Dates Details Patient Instructions Indication:Hyperlipidemia Start:02-Oct-2021 Instruction Type:Provider Instructions for Treatment How to Access Health Informa tion Online using Patient Portal and [employer] Apps Indication:Hyperlipidemia Start:02-Oct-2021 Instruction Type:Patient Education Patient Instructions Indication:Nonsmoker Start:18-Jun-2021 Instruction Type:Provider Instructions for Treatment How to Access Health Informa tion Online using Patient Portal and [employer] Apps Indication:Nonsmoker Start:18-Jun-2021 Instruction Type:Patient Education Patient Instructions Indication:Brain fog Start:28-Mar-2021 Instruction Type:Provider Instructions for Treatment How to Access Health Informa tion Online using Patient Portal and [employer] Apps Indication:Brain fog Start:28-Mar-2021 Instruction Type:Patient Education [facility]; [facility] Work Phone: instructions* Name Dates Details Patient Instructions Indication:Hyperlipidemia Start:02-Oct-2021 Instruction Type:Provider Instructions for Treatment How to Access Health Informa tion Online using Patient Portal and [employer] Apps Indication:Hyperlipidemia Start:02-Oct-2021 Instruction Type:Patient Education Patient Instructions Indication:Nonsmoker Start:18-Jun-2021 Instruction Type:Provider Instructions for Treatment How to Access Health Informa tion Online using Patient Portal and [employer] Apps Indication:Nonsmoker Start:18-Jun-2021 Instruction Type:Patient Education Patient Instructions Indication:Brain fog Start:28-Mar-2021 Instruction Type:Provider Instructions for Treatment How to Access Health Informa tion Online using Patient Portal and [employer] Apps Indication:Brain fog Start:28-Mar-2021 Instruction Type:Patient Education [facility]; [facility] Work Phone: Instructions* Name Dates Details Patient Instructions Indication:Hyperlipidemia Start:02-Oct-2021 Instruction Type:Provider Instructions for Treatment How to Access Health Informa tion Online using Patient Portal and [employer] Apps Indication:Hyperlipidemia Start:02-Oct-2021 Instruction Type:Patient Education Patient Instructions Indication:Nonsmoker Start:18-Jun-2021 Instruction Type:Provider Instructions for Treatment How to Access Health Informa tion Online using Patient Portal and [employer] Apps Indication:Nonsmoker Start:18-Jun-2021 Instruction Type:Patient Education Patient Instructions Indication:Brain fog Start:28-Mar-2021 Instruction Type:Provider Instructions for Treatment How to Access Health Informa tion Online using Patient Portal and [employer] Apps Indication:Brain fog Start:28-Mar-2021 Instruction Type:Patient Education [facility]; [facility] Work Phone: Instructions* Name Dates Details Patient Instructions Indication:Cough Start:18-Sep-2022 Instruction Type:Provider Instructions for Treatment How to Access Health Informa tion Online using Patient Portal and [employer] Apps Indication:Cough Start:18-Sep-2022 Instruction Type:Patient Education Patient Instructions Indication:Hyperlipidemia Start:02-Oct-2021 Instruction Type:Provider Instructions for Treatment How to Access Health Informa tion Online using Patient Portal and [employer] Apps Indication:Hyperlipidemia Start:02-Oct-2021 Instruction Type:Patient Education Patient Instructions Indication:Nonsmoker Start:18-Jun-2021 Instruction Type:Provider Instructions for Treatment How to Access Health Informa tion Online using Patient Portal and [employer] Apps Indication:Nonsmoker Start:18-Jun-2021 Instruction Type:Patient Education Patient Instructions Indication:Brain fog Start:28-Mar-2021 Instruction Type:Provider Instructions for Treatment How to Access Health Informa tion Online using Patient Portal and [employer] Apps Indication:Brain fog Start:28-Mar-2021 Instruction Type:Patient Education [facility]; [facility] Work Phone: instructions* Name Dates Details Patient Instructions Indication:Nonsmoker Start:02-Oct-2022 Instruction Type:Provider Instructions for Treatment How to Access Health Informa tion Online using Patient Portal and [employer] Apps Indication:Nonsmoker Start:02-Oct-2022 Instruction Type:Patient Education Patient Instructions Indication:Cough Start:18-Sep-2022 Instruction Type:Provider Instructions for Treatment How to Access Health Informa tion Online using Patient Portal and [employer] Apps Indication:Cough Start:18-Sep-2022 Instruction Type:Patient Education Patient Instructions Indication:Hyperlipidemia Start:02-Oct-2021 Instruction Type:Provider Instructions for Treatment How to Access Health Informa tion Online using Patient Portal and [employer] Apps Indication:Hyperlipidemia Start:02-Oct-2021 Instruction Type:Patient Education Patient Instructions Indication:Nonsmoker Start:18-Jun-2021 Instruction Type:Provider Instructions for Treatment How to Access Health Informa tion Online using Patient Portal and [employer] Apps Indication:Nonsmoker Start:18-Jun-2021 Instruction Type:Patient Education Patient Instructions Indication:Brain fog Start:28-Mar-2021 Instruction Type:Provider Instructions for Treatment How to Access Health Informa tion Online using Patient Portal and [employer] Apps Indication:Brain fog Start:28-Mar-2021 Instruction Type:Patient Education [facility]; [facility] Work Phone: instructions* Name Dates Details Patient Instructions Indication:Nonsmoker Start:06-Jan-2023 Instruction Type:Provider Instructions for Treatment How to Access Health Informa tion Online using Patient Portal and [employer] Apps Indication:Nonsmoker Start:06-Jan-2023 Instruction Type:Patient Education Patient Instructions Indication:Nonsmoker Start:02-Oct-2022 Instruction Type:Provider Instructions for Treatment How to Access Health Informa tion Online using Patient Portal and [employer] Apps Indication:Nonsmoker Start:02-Oct-2022 Instruction Type:Patient Education Patient Instructions Indication:Cough Start:18-Sep-2022 Instruction Type:Provider Instructions for Treatment How to Access Health Informa tion Online using Patient Portal and [employer] Apps Indication:Cough Start:18-Sep-2022 Instruction Type:Patient Education Patient Instructions Indication:Hyperlipidemia Start:02-Oct-2021 Instruction Type:Provider Instructions for Treatment How to Access Health Informa tion Online using Patient Portal and [employer] Apps Indication:Hyperlipidemia Start:02-Oct-2021 Instruction Type:Patient Education Patient Instructions Indication:Nonsmoker Start:18-Jun-2021 Instruction Type:Provider Instructions for Treatment How to Access Health Informa tion Online using Patient Portal and [employer] Apps Indication:Nonsmoker Start:18-Jun-2021 Instruction Type:Patient Education Patient Instructions Indication:Brain fog Start:28-Mar-2021 Instruction Type:Provider Instructions for Treatment How to Access Health Informa tion Online using Patient Portal and [employer] Apps Indication:Brain fog Start:28-Mar-2021 Instruction Type:Patient Education [facility]; [facility] Work Phone: Instructions* Name Dates Details Patient Instructions Indication:Nonsmoker Start:06-Jan-2023 Instruction Type:Provider Instructions for Treatment How to Access Health Informa tion Online using Patient Portal and [employer] Apps Indication:Nonsmoker Start:06-Jan-2023 Instruction Type:Patient Education Patient Instructions Indication:Nonsmoker Start:02-Oct-2022 Instruction Type:Provider Instructions for Treatment How to Access Health Informa tion Online using Patient Portal and [employer] Apps Indication:Nonsmoker Start:02-Oct-2022 Instruction Type:Patient Education Patient Instructions Indication:Cough Start:18-Sep-2022 Instruction Type:Provider Instructions for Treatment How to Access Health Informa tion Online using Patient Portal and [employer] Apps Indication:Cough Start:18-Sep-2022 Instruction Type:Patient Education Patient Instructions Indication:Hyperlipidemia Start:02-Oct-2021 Instruction Type:Provider Instructions for Treatment How to Access Health Informa tion Online using Patient Portal and [employer] Apps Indication:Hyperlipidemia Start:02-Oct-2021 Instruction Type:Patient Education Patient Instructions Indication:Nonsmoker Start:18-Jun-2021 Instruction Type:Provider Instructions for Treatment How to Access Health Informa tion Online using Patient Portal and [employer] Apps Indication:Nonsmoker Start:18-Jun-2021 Instruction Type:Patient Education Patient Instructions Indication:Brain fog Start:28-Mar-2021 Instruction Type:Provider Instructions for Treatment How to Access Health Informa tion Online using Patient Portal and [employer] Apps Indication:Brain fog Start:28-Mar-2021 Instruction Type:Patient Education [facility]; [facility] Work Phone: instructions* Name Dates Details Patient Instructions Indication:Nonsmoker Start:06-Jan-2023 Instruction Type:Provider Instructions for Treatment How to Access Health Informa tion Online using Patient Portal and [employer] Apps Indication:Nonsmoker Start:06-Jan-2023 Instruction Type:Patient Education Patient Instructions Indication:Nonsmoker Start:02-Oct-2022 Instruction Type:Provider Instructions for Treatment How to Access Health Informa tion Online using Patient Portal and [employer] Apps Indication:Nonsmoker Start:02-Oct-2022 Instruction Type:Patient Education Patient Instructions Indication:Cough Start:18-Sep-2022 Instruction Type:Provider Instructions for Treatment How to Access Health Informa tion Online using Patient Portal and [employer] Apps Indication:Cough Start:18-Sep-2022 Instruction Type:Patient Education Patient Instructions Indication:Hyperlipidemia Start:02-Oct-2021 Instruction Type:Provider Instructions for Treatment How to Access Health Informa tion Online using Patient Portal and [employer] Apps Indication:Hyperlipidemia Start:02-Oct-2021 Instruction Type:Patient Education Patient Instructions Indication:Nonsmoker Start:18-Jun-2021 Instruction Type:Provider Instructions for Treatment How to Access Health Informa tion Online using Patient Portal and [employer] Apps Indication:Nonsmoker Start:18-Jun-2021 Instruction Type:Patient Education Patient Instructions Indication:Brain fog Start:28-Mar-2021 Instruction Type:Provider Instructions for Treatment How to Access Health Informa tion Online using Patient Portal and [employer] Apps Indication:Brain fog Start:28-Mar-2021 Instruction Type:Patient Education [facility]; [facility] Work Phone: Instructions* Name Dates Details Patient Instructions Indication:Nonsmoker Start:06-Jan-2023 Instruction Type:Provider Instructions for Treatment How to Access Health Informa tion Online using Patient Portal and [employer] Apps Indication:Nonsmoker Start:06-Jan-2023 Instruction Type:Patient Education Patient Instructions Indication:Nonsmoker Start:02-Oct-2022 Instruction Type:Provider Instructions for Treatment How to Access Health Informa tion Online using Patient Portal and [employer] Apps Indication:Nonsmoker Start:02-Oct-2022 Instruction Type:Patient Education Patient Instructions Indication:Cough Start:18-Sep-2022 Instruction Type:Provider Instructions for Treatment How to Access Health Informa tion Online using Patient Portal and [employer] Apps Indication:Cough Start:18-Sep-2022 Instruction Type:Patient Education Patient Instructions Indication:Hyperlipidemia Start:02-Oct-2021 Instruction Type:Provider Instructions for Treatment How to Access Health Informa tion Online using Patient Portal and [employer] Apps Indication:Hyperlipidemia Start:02-Oct-2021 Instruction Type:Patient Education Patient Instructions Indication:Nonsmoker Start:18-Jun-2021 Instruction Type:Provider Instructions for Treatment How to Access Health Informa tion Online using Patient Portal and [employer] Apps Indication:Nonsmoker Start:18-Jun-2021 Instruction Type:Patient Education Patient Instructions Indication:Brain fog Start:28-Mar-2021 Instruction Type:Provider Instructions for Treatment How to Access Health Informa tion Online using Patient Portal and [employer] Apps Indication:Brain fog Start:28-Mar-2021 Instruction Type:Patient Education [facility]; [facility] Work Phone: Instructions* Name Dates Details Patient Instructions Indication:Nonsmoker Start:14-Apr-2023 Instruction Type:Provider Instructions for Treatment How to Access Health Informa tion Online using Patient Portal and [employer] Apps Indication:Nonsmoker Start:14-Apr-2023 Instruction Type:Patient Education Patient Instructions Indication:Nonsmoker Start:06-Jan-2023 Instruction Type:Provider Instructions for Treatment How to Access Health Informa tion Online using Patient Portal and [employer] Apps Indication:Nonsmoker Start:06-Jan-2023 Instruction Type:Patient Education Patient Instructions Indication:Nonsmoker Start:02-Oct-2022 Instruction Type:Provider Instructions for Treatment How to Access Health Informa tion Online using Patient Portal and [employer] Apps Indication:Nonsmoker Start:02-Oct-2022 Instruction Type:Patient Education Patient Instructions Indication:Cough Start:18-Sep-2022 Instruction Type:Provider Instructions for Treatment How to Access Health Informa tion Online using Patient Portal and [employer] Apps Indication:Cough Start:18-Sep-2022 Instruction Type:Patient Education Patient Instructions Indication:Hyperlipidemia Start:02-Oct-2021 Instruction Type:Provider Instructions for Treatment How to Access Health Informa tion Online using Patient Portal and [employer] Apps Indication:Hyperlipidemia Start:02-Oct-2021 Instruction Type:Patient Education Patient Instructions Indication:Nonsmoker Start:18-Jun-2021 Instruction Type:Provider Instructions for Treatment How to Access Health Informa tion Online using Patient Portal and [employer] Apps Indication:Nonsmoker Start:18-Jun-2021 Instruction Type:Patient Education Patient Instructions Indication:Brain fog Start:28-Mar-2021 Instruction Type:Provider Instructions for Treatment How to Access Health Informa tion Online using Patient Portal and [employer] Apps Indication:Brain fog Start:28-Mar-2021 Instruction Type:Patient Education [facility] Work Phone: Instructions* Name Dates Details Patient Instructions Indication:Nonsmoker Start:14-Apr-2023 Instruction Type:Provider Instructions for Treatment How to Access Health Informa tion Online using Patient Portal and [employer] Apps Indication:Nonsmoker Start:14-Apr-2023 Instruction Type:Patient Education Patient Instructions Indication:Nonsmoker Start:06-Jan-2023 Instruction Type:Provider Instructions for Treatment How to Access Health Informa tion Online using Patient Portal and [employer] Apps Indication:Nonsmoker Start:06-Jan-2023 Instruction Type:Patient Education Patient Instructions Indication:Nonsmoker Start:02-Oct-2022 Instruction Type:Provider Instructions for Treatment How to Access Health Informa tion Online using Patient Portal and [employer] Apps Indication:Nonsmoker Start:02-Oct-2022 Instruction Type:Patient Education Patient Instructions Indication:Cough Start:18-Sep-2022 Instruction Type:Provider Instructions for Treatment How to Access Health Informa tion Online using Patient Portal and [employer] Apps Indication:Cough Start:18-Sep-2022 Instruction Type:Patient Education Patient Instructions Indication:Hyperlipidemia Start:02-Oct-2021 Instruction Type:Provider Instructions for Treatment How to Access Health Informa tion Online using Patient Portal and [employer] Apps Indication:Hyperlipidemia Start:02-Oct-2021 Instruction Type:Patient Education Patient Instructions Indication:Nonsmoker Start:18-Jun-2021 Instruction Type:Provider Instructions for Treatment How to Access Health Informa tion Online using Patient Portal and [employer] Apps Indication:Nonsmoker Start:18-Jun-2021 Instruction Type:Patient Education Patient Instructions Indication:Brain fog Start:28-Mar-2021 Instruction Type:Provider Instructions for Treatment How to Access Health Informa tion Online using Patient Portal and [employer] Apps Indication:Brain fog Start:28-Mar-2021 Instruction Type:Patient Education [facility] Work Phone: Instructions* Name Dates Details Patient Instructions Indication:Nonsmoker Start:14-Apr-2023 Instruction Type:Provider Instructions for Treatment How to Access Health Informa tion Online using Patient Portal and [employer] Apps Indication:Nonsmoker Start:14-Apr-2023 Instruction Type:Patient Education Patient Instructions Indication:Nonsmoker Start:06-Jan-2023 Instruction Type:Provider Instructions for Treatment How to Access Health Informa tion Online using Patient Portal and [employer] Apps Indication:Nonsmoker Start:06-Jan-2023 Instruction Type:Patient Education Patient Instructions Indication:Nonsmoker Start:02-Oct-2022 Instruction Type:Provider Instructions for Treatment How to Access Health Informa tion Online using Patient Portal and [employer] Apps Indication:Nonsmoker Start:02-Oct-2022 Instruction Type:Patient Education Patient Instructions Indication:Cough Start:18-Sep-2022 Instruction Type:Provider Instructions for Treatment How to Access Health Informa tion Online using Patient Portal and [employer] Apps Indication:Cough Start:18-Sep-2022 Instruction Type:Patient Education Patient Instructions Indication:Hyperlipidemia Start:02-Oct-2021 Instruction Type:Provider Instructions for Treatment How to Access Health Informa tion Online using Patient Portal and [employer] Apps Indication:Hyperlipidemia Start:02-Oct-2021 Instruction Type:Patient Education Patient Instructions Indication:Nonsmoker Start:18-Jun-2021 Instruction Type:Provider Instructions for Treatment How to Access Health Informa tion Online using Patient Portal and [employer] Apps Indication:Nonsmoker Start:18-Jun-2021 Instruction Type:Patient Education Patient Instructions Indication:Brain fog Start:28-Mar-2021 Instruction Type:Provider Instructions for Treatment How to Access Health Informa tion Online using Patient Portal and [employer] Apps Indication:Brain fog Start:28-Mar-2021 Instruction Type:Patient Education [facility] Work Phone: Summary Purpose Family History No Family History Records FoundUnknown Family Member Name Dates Details Father Comments:living in his 80s- Alzheimers /restrictive cardiomyopathy - cirrhosis due to alcohol and fatty liver - bladder cancer Status:Active Mother Comments: , obesity mrsa from infection Status:Active Unknown Family Member Name Dates Details Father Comments:living in his 80s- Alzheimers /restrictive cardiomyopathy - cirrhosis due to alcohol and fatty liver - bladder cancer Status:Active Mother Comments: , obesity mrsa from infection Status:Active Unknown Family Member Name Dates Details Father Comments:living in his 80s- Alzheimers /restrictive cardiomyopathy - cirrhosis due to alcohol and fatty liver - bladder cancer Status:Active Mother Comments: , obesity mrsa from infection Status:Active Unknown Family Member Name Dates Details Father Comments:living in his 80s- Alzheimers /restrictive cardiomyopathy - cirrhosis due to alcohol and fatty liver - bladder cancer Status:Active Mother Comments: , obesity mrsa from infection Status:Active Unknown Family Member Name Dates Details Father Comments:living in his 80s- Alzheimers /restrictive cardiomyopathy - cirrhosis due to alcohol and fatty liver - bladder cancer Status:Active Mother Comments: , obesity mrsa from infection Status:Active Unknown Family Member Name Dates Details Father Comments:living in his 80s- Alzheimers /restrictive cardiomyopathy - cirrhosis due to alcohol and fatty liver - bladder cancer Status:Active Mother Comments: , obesity mrsa from infection Status:Active Unknown Family Member Name Dates Details Father Comments:living in his 80s- Alzheimers /restrictive cardiomyopathy - cirrhosis due to alcohol and fatty liver - bladder cancer Status:Active Mother Comments: , obesity mrsa from infection Status:Active Unknown Family Member Name Dates Details Father Comments:living in his 80s- Alzheimers /restrictive cardiomyopathy - cirrhosis due to alcohol and fatty liver - bladder cancer Status:Active Mother Comments: , obesity mrsa from infection Status:Active Unknown Family Member Name Dates Details Father Comments:living in his 80s- Alzheimers /restrictive cardiomyopathy - cirrhosis due to alcohol and fatty liver - bladder cancer Status:Active Mother Comments: , obesity mrsa from infection Status:Active Unknown Family Member Name Dates Details Father Comments:living in his 80s- Alzheimers /restrictive cardiomyopathy - cirrhosis due to alcohol and fatty liver - bladder cancer Status:Active Mother Comments: , obesity mrsa from infection Status:Active Unknown Family Member Name Dates Details Father Comments:living in his 80s- Alzheimers /restrictive cardiomyopathy - cirrhosis due to alcohol and fatty liver - bladder cancer Status:Active Mother Comments: , obesity mrsa from infection Status:Active Unknown Family Member Name Dates Details Father Comments:living in his 80s- Alzheimers /restrictive cardiomyopathy - cirrhosis due to alcohol and fatty liver - bladder cancer Status:Active Mother Comments: , obesity mrsa from infection Status:Active Unknown Family Member Name Dates Details Father Comments:living in his 80s- Alzheimers /restrictive cardiomyopathy - cirrhosis due to alcohol and fatty liver - bladder cancer Status:Active Mother Comments: , obesity mrsa from infection Status:Active Unknown Family Member Name Dates Details Father Comments:living in his 80s- Alzheimers /restrictive cardiomyopathy - cirrhosis due to alcohol and fatty liver - bladder cancer Status:Active Mother Comments: , obesity mrsa from infection Status:Active Advance Directives No Advanced Directives Records FoundNo Advanced Directives Records FoundNo Advanced Directives Records FoundNo Advanced Directives Records FoundNo Advanced Directives Records Found Additional Source Comments (unrecognized sect ion and content) No Status Records FoundNo Status Records FoundNo Status Records FoundNo Status Records FoundNo Status Records Found INFORMATION SOURCE (unrecogn ized section and content) DATE CREATED AUTHOR AUTHOR'S ORGANIZ ATION 09/04/2021 [facility] ([place] DATE CREATED AUTHOR AUTHOR'S ORGANIZ ATION 01/07/2023 [facility] DATE CREATED AUTHOR AUTHOR'S ORGANIZ ATION 01/29/2023 [facility] DATE CREATED AUTHOR AUTHOR'S ORGANIZ ATION 10/16/2023 [facility] FOR RECORDS PERTAINING TO PATIENTS WHO ARE OR HAVE BEEN ENROLLED IN A CHEMICAL DEPENDENCY/SUBSTANCEABUSE PROGRAM, SOME INFORMATION MAY BE OMITTED. This clinical summary was aggregated from multiple sources. Caution should be exercised in using it in the provision of clinical care. This summary normalizes information from multiple sources, and as a consequence, information in this document may materially change the coding, format and clinical context of patient data. In addition, data may be omitted in some cases. CLINICAL DECISIONS SHOULD BE BASED ON THE PRIMARY CLINICAL RECORDS. [employer] [facility]. provides no warranty or guarantee of the accuracy or completeness of information in this document.
[2023-10-20 14:08] LABS: PSA, Free 1.55 ng/mL; PSA, Free % 15.8 % (.)
== END | disposition home or self-care (01) ==
LOC: MTLAB 16:06
PROVIDERS: PCP Internal Medicine; Referring Provider Nurse Practitioner; Visit Provider Nurse Practitioner
DX: R97.20 Elevated prostate specific antigen [PSA] (principal)
CPT/HCPCS: 36415; 84153; 84154

== ENCOUNTER → 2024-03-24 | Outpatient (CLI) | payer MEDICARE, BC, SELFPAY ==
--- NOTE | 2024-03-24 13:57 | CDU_ITS ---
Reason For Study: DIZZINESS Rt. Velocities/BP Lt. Velocities/BP Prox CCA 121.9/24.9 cm/sec. Prox CCA 152.1/31.6 cm/sec. Mid CCA 101.1/24.9 cm/sec. Mid CCA 92.4/19.4 cm/sec. Dist CCA 80.2/21.2 cm/sec. Dist CCA 76.0/15.7 cm/sec. Prox ICA 82.6/16.3 cm/sec. Prox ICA 85.5/26.5 cm/sec. Mid ICA 99.8/31.1 cm/sec. Mid ICA 94.1/36.3 cm/sec. Dist ICA 80.2/23.7 cm/sec. Dist ICA 75.6/29.0 cm/sec. Rt. ICA/CCA = .98. Prox ECA 116.2/12.1 cm/sec. Prox ECA 150 cm/sec. Lt. Vert. 50.0/10.3 cm/sec. Rt. Vert. 41.5/9.5 cm/sec. Right Extracranial There is no significant atherosclerotic plaque noted in the right common carotid artery. There is intimal thickening but no significant atherosclerotic plaque noted in the right internal carotid artery. There is no significant atherosclerotic plaque noted in the right external carotid artery. Antegrade flow is noted in the right vertebral artery. Left Extracranial There is intimal thickening but no significant atherosclerotic plaque noted in the left common carotid artery. There is intimal thickening but no significant atherosclerotic plaque noted in the left internal carotid artery. There is intimal thickening but no significant atherosclerotic plaque noted in the left external carotid artery. Antegrade flow is noted in the left vertebral artery. Procedure Carotid Duplex 56098. This is a Carotid Duplex examination using B-mode, color flow and specral Doppler. The exam was diagnostic. Exam performed in department. VL/Carotid Duplex Ultrasound Interpretation Summary Normal right extracranial internal carotid. Normal left extracranial internal carotid. Patent and antegrade vertebrals bilaterally. Ordering Physician: Betty Santoro Referring Physician: Betty Santoro Performed By: Farrah Garcia RVT
--- NOTE | 2024-03-24 13:57 | US_ITS ---
STUDY: THYROID ULTRASOUND REASON FOR EXAM: Male, 64 years old. thyroid nodule TECHNIQUE: Ultrasound evaluation of the thyroid was performed with real-time and static tuttle-scale imaging. COMPARISON: 01/16/2023 FINDINGS: RIGHT LOBE: The right lobe of the thyroid gland measures 5.3 x 1.9 x 1.5 cm. There is a homogeneous echotexture. Tiny (less than 5 mm) colloid cyst in the anterior right lobe. LEFT LOBE: The left lobe of the thyroid gland measures 4.9 x 1.6 x 1.8 cm. There is a homogeneous echotexture. Tiny (less than 5 mm) colloid cysts in the left lobe. ISTHMUS: The isthmus measures 2 mm thick. . The regional lymph nodes are normal. US/Thyroid IMPRESSION: Essentially normal thyroid ultrasound with some tiny colloid cysts. These require no further follow-up. Electronically Signed: Ricky Copeland MD at 15:10 EDT ,
--- NOTE | 2024-03-24 14:30 | RAD_ITS ---
STUDY: X-RAY - THORACIC SPINE REASON FOR EXAM: Male, 64 years old. paraesthesia TECHNIQUE: 3 view(s) of the thoracic spine were obtained. COMPARISON: None. FINDINGS: Normal kyphosis of the thoracic spine. There is no substantial scoliosis. There is multilevel endplate spondylosis of the thoracic vertebrae. There is multilevel disc space narrowing of the thoracic spine. The soft tissue structures are unremarkable. RAD/Thoracic Spine 3 Views IMPRESSION: Degenerative disc disease lower thoracic spine. Electronically Signed: Ricky Copeland MD at 15:08 EDT ,
== END | disposition home or self-care (01) ==
LOC: US 13:51
PROVIDERS: PCP Internal Medicine; Referring Provider Internal Medicine; Visit Provider Internal Medicine
DX: E04.1 Nontoxic single thyroid nodule (principal); R42 Dizziness and giddiness; R20.2 Paresthesia of skin
CPT/HCPCS: 72072; 76536; 93880

== ENCOUNTER → 2024-04-22 | Outpatient (CLI) | payer MEDICARE, BC, SELFPAY | END | disposition home or self-care (01) | LOC: MTLAB 14:34 | PROVIDERS: PCP Internal Medicine; Referring Provider Nurse Practitioner; Visit Provider Nurse Practitioner | DX: R97.20 Elevated prostate specific antigen [PSA] (principal) | CPT/HCPCS: 36415; 84153 ==

== ENCOUNTER 2024-05-12 10:59 | Outpatient (RCR) | payer MEDICARE, BC, SELFPAY ==
--- NOTE | 2024-08-06 10:10 | HP.PTCOM ---
PT Communication Note 08/06/[address] Betty Santoro, DO , Sincerely, I saw Ricky Patten, After going through movements of his thoracic spine, I was unable to reproduce his symptoms. Due to this I am not sure there is a mechanical issues that can be help him. I did recommend possible massage. He is okay with this. Stanton Kwon DPT Contact Information
== END 2024-05-12 19:00 | disposition home or self-care (01) ==
LOC: PT 10:59
PROVIDERS: PCP Internal Medicine; Referring Provider Internal Medicine; Visit Provider Internal Medicine
DX: M51.34 Other intervertebral disc degeneration, thoracic region (principal); R20.2 Paresthesia of skin

== ENCOUNTER → 2024-05-14 | Outpatient (CLI) | payer MEDICARE, BC, SELFPAY ==
--- NOTE | 2024-05-14 11:19 | MRI_ITS ---
STUDY: MR PROSTATE GLAND/ PELVIS WITH T WITHOUT CONTRAST REASON FOR EXAM: Male, 64 years old. ELEVATED PSA, NO NEW CONCERNS TECHNIQUE: Standardized fat and water weighted pulse sequences were obtained in all 3 orthogonal planes, pre-and post contrast administration. IV 19ML CLARISCAN was administered for the contrast portion of the examination. COMPARISON: MRI of the prostate gland dated February 20, 2023 FINDINGS: Pertinent prior findings/description: PI RADS 4/suspicious lesion described in the left anterior transitional zone. Current exam persistent low signal nodule in the central posterior aspect of the left peripheral zone measuring 1.66 cm, but there is no postcontrast enhancement of this lesion. Also on the noncontrast T2 sequence on the current exam there is bright diffusion signal in the central aspect of this nodule likely due to acute necrosis or inflammation. However, bright diffusion weighted and dark ADC map signal persist in this nodule, unchanged from what was seen on the prior study. These findings are equivocal as although the criteria for malignant neoplasm is not fully met by MR criteria. AZ RADS 3 to 4 for the current findings with clinical correlation. Pertinent prior findings/description: PI RADS 5 suspicious lesion described in the right anterior transitional zone. On the prior study right diffusion weighted and dark ADC map signal is demonstrated in this lesion, however on the current exam there is no bright diffusion weighted signal, however the ADC dark signal persists likely due to inflammation or posttreatment changes (see image #15/136 series 6 on the current exam). Prostate gland volume/size: 5.45 x 3.67 x 4.80 cm, which is mildly enlarged. Anterior fibromuscular stroma: Normal Peripheral zone: Normal right and left peripheral zones. Central zone: Diffusely heterogeneous and nodular with intermediate to low signal foci. Transitional zone: Diffusely heterogeneous and nodular with intermediate to low signal foci. Prostate capsule: Intact Seminal vesicles: Normal bilaterally Pelvic sidewall lymphadenopathy: None demonstrated Bony structures: No marrow edema or lytic or blastic lesions or abnormal enhancement of the bony structures is demonstrated on this study. No inguinal adenopathy is present. Normal urinary bladder. Normal visualized small intestine. Normal visualized colon. There is no pelvic fluid. There is no pelvic mass lesion. Normal abdominal wall. MRI/Pelvis W/WO Contrast IMPRESSION: 1. Pertinent prior findings/description: PI RADS 4/suspicious lesion described in the left anterior transitional zone. Current exam persistent low signal nodule in the central posterior aspect of the left peripheral zone measuring 1.66 cm, but there is no postcontrast enhancement of this lesion. Also on the noncontrast T2 sequence on the current exam there is bright diffusion signal in the central aspect of this nodule likely due to acute necrosis or inflammation. However, bright diffusion weighted and dark ADC map signal persist in this nodule, unchanged from what was seen on the prior study. 2. These findings are equivocal as although the criteria for malignant neoplasm is not fully met by MR criteria. 3. AZ RADS 3 to 4 for the current findings with clinical correlation. 4. Targeted biopsy of suspicious lesions is recommended and correlation with PET/CT to determine if there is any viable malignant neoplasm in these areas of concern. Reference information: Normal prostate tissue Benign prostatic hypertrophy cancer/tumor - low signal peripheral , transitional, and central zones malignancy appears as bright on DWI and low signal on ADC map Prostate imaging-reporting and data system (PI-RADS) PI-RADS 1: very low (clinically significant cancer is highly unlikely to be present) PI-RADS 2: low (clinically significant cancer is unlikely to be present) PI-RADS 3: intermediate (the presence of clinically significant cancer is equivocal) PI-RADS 4: high (clinically significant cancer is likely to be present) PI-RADS 5: very high (clinically significant cancer is highly likely to be present) PI-RADS X: component of exam technically inadequate or not performed Prostate malignancy distribution: Peripheral zone: 70-80% Transitional zone: 10-20% Central zone: 5% or less Electronically Signed: Darrell Johnston MD at 9:41 EDT ,
[2024-05-14 12:03] LABS: CREATININE FINGERSTICK < 1.0 mg/dL (0.70-1.30); EGFR FINGERSTICK > 60.0000 mL/min (>60)
== END | disposition home or self-care (01) ==
LOC: MRI 11:15
PROVIDERS: PCP Internal Medicine; Referring Provider Urology; Visit Provider Urology
DX: Z01.812 Encounter for preprocedural laboratory examination (principal); R97.20 Elevated prostate specific antigen [PSA]
CPT/HCPCS: 72197; A9575

== ENCOUNTER → 2024-05-21 | Outpatient (CLI) | payer MEDICARE, BC, SELFPAY ==
[2024-05-21 10:21] LABS: Hematocrit 42.9 % (40-54); Hemoglobin 13.9 g/dL (13.0-16.5); Mean Corp Hgb Conc 32.4 g/dL (32-36); Mean Corpuscular Hgb 29.5 pg (27.0-32.0); Mean Corpuscular Volume 91.1 fL (80-94); Platelet Count 178 K/mm3 (150-450); RBC Distribution Width CV 12.6 % (11.6-14.6); RBC Distribution Width SD 41.9 fl (35.1-43.9); Red Blood Count 4.71 M/mm3 (4.6-6.2); White Blood Count 6.9 K/mm3 (4.4-11.0)
[2024-05-21 11:17] LABS: Anion Gap 3 (5-15); BUN 12 mg/dL (7-18); BUN/Creat Ratio 12.4 RATIO (10-20); Calcium,Total 8.8 mg/dL (8.5-10.1); Chloride 110 mmol/L (98-107); Creatinine, Serum 0.97 mg/dL (0.70-1.30); EST Glomerular Filtration Rate 83 mL/min (>60); Est Glom Filt Rate - Afr Amer 100 mL/min (>60); Glucose 90 mg/dL (74-106); Potassium 3.8 mmol/L (3.5-5.1); Sodium Level 140 mmol/L (136-145)
== END | disposition home or self-care (01) ==
LOC: LAB 09:45
PROVIDERS: PCP Internal Medicine; Referring Provider Urology; Visit Provider Urology
DX: Z01.812 Encounter for preprocedural laboratory examination (principal)
CPT/HCPCS: 36415; 80048; 85027

== ENCOUNTER → 2024-05-27 | Outpatient (CLI) | payer MEDICARE, BC, SELFPAY ==
--- NOTE | 2024-05-27 15:42 | MRI_ITS ---
INDICATION: dizziness, GIDDINESS EXAMINATION: MRI - MR Brain WO/W Contrast TECHNIQUE: MRI examination of brain obtained with standard protocol including multiplanar multiecho imaging. Pre and Postcontrast imaging obtained. IV Contrast Dosage and Agent: 18 mL Clariscan COMPARISON: : No relevant prior comparison study available FINDINGS: HEMISPHERES, CEREBELLUM AND BRAINSTEM: 1. The cerebral parenchyma, ventricular system, subarachnoid spaces have normal configuration and density. There is a normal gyral pattern. There is normal tuttle/white differentiation. No midline shift.. 2. Minimal chronic microvascular deep white matter disease. No evidence of fluid restriction or acute ischemia. No hemosiderin deposition or hemorrhage. 3. No intraparenchymal mass, hemorrhage, or acute territorial infarct. 4. The cerebellum, brainstem, basilar and suprasellar cisterns have normal appearance. No Chiari malformation. 5. No areas of abnormal intraparenchymal or extra-axial contrast enhancement. PITUITARY: Infundibulum and pituitary have normal configuration. Midline structures appear normal. CSF SPACES: Appropriate for age. No hydrocephalus. Basal cisterns are patent. VESSELS: 1. There are normal flow voids noted in the great vessels at the skull base ORBITS AND PARANASAL SINUSES: 1. Both globes, extraocular muscles, optic nerves and retrobulbar fat appear unremarkable. 2. Paranasal sinuses are clear. BONY ELEMENTS: Bony elements of the cranial vault, facial skeleton and skull base have normal appearance. SCALP AND SOFT TISSUES: Normal appearance of the soft tissues of the scalp and the visualized face OTHER: None MRI/Brain W/WO Contrast IMPRESSION: 1. Minimal involutional changes and chronic microvascular deep white matter disease. 2. No mass, hemorrhage, or acute territorial infarct. No areas of abnormal contrast enhancement. 3. No radiographically significant sinus disease. Electronically Signed: Ricky Herrera MD at 20:46 EDT ,
== END | disposition home or self-care (01) ==
LOC: MRI 15:36
PROVIDERS: PCP Internal Medicine; Referring Provider Internal Medicine; Visit Provider Internal Medicine
DX: R42 Dizziness and giddiness (principal)
CPT/HCPCS: 70553; A9575

== ENCOUNTER → 2024-06-07 | Outpatient (CLI) | payer MEDICARE, BC, SELFPAY ==
--- NOTE | 2024-06-04 | IMM_PTH ---
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 Imtiaz Sanches MD : 1960 BED: DIS: 06/07/2024 SPEC #: [id number] RECD: 06/09/24 11:33 STATUS: MATILDA REQ #: [id number] SONNY: 06/04/24 00:[address]: Imtiaz Sanches DEPT: IMMUNOHISTOCHEMISTRY RECD BY: Talib Henry ENTERED: 06/09/24 11:34 SP TYPE: IMMUNO OTHR DR: Dr. Betty Santoro, Tissues: B - PROSTATE RIGHT C - PROSTATE RIGHT Procedures: 34BE12 (add) P40 (add) P40 (initial) PHYSICIAN & INSTITUTION [place] [id number] SPECIMEN INFORMATION: Tissue Source: A- Right base, C- Right apex Clinical Info: Benign prostatic hyperplasia with lower urinary tract symptoms, elevated PSA Specimen Number: [id number] Gisella Oconnor CPT code: 66062,47445u7 METHODOLOGY: Deparaffinized sections of prefer/formalin-fixed tissue or PAP/DQ stained slides are incubated with monoclonal/polyclonal antibodies/oligonucleotide probes. Localization is made via biotin free immunoperoxidase method. Appropriate controls are performed and reacted as expected. Results on target cell population are indicated in the following table: RESULTS: ANTIBODY / CLONE RESULT Block A P40 (BC28) positive 34BE12 (34BE12) positive Block C P40 (BC28) positive 34BE12 (34BE12) positive These tests were developed and their performance characteristics determined by [facility]. They may not have been cleared or approved by the U.S. Food and Drug Administration. The FDA has determined that such clearance or approval is not necessary. The above immunohistochemical/dualISH markers are ordered and reviewed by the Pathologist. INTERPRETATION: A. Prostate, right base, core biopsy: Benign prostatic tissue. C. Prostate, right apex, core biopsy: Benign prosthetic tissue. AM. 06/11/2024
--- NOTE | 2024-06-04 08:15 | PROSBIL_PTH ---
PATIENT: STORMY SAVAGE [facility] U#:[id number] AGE/SX: 64/M ROOM: RE06/07/[address]: Dr. Imtiaz Sanches MD : [id number] BED: DIS: 06/07/2024 SPEC #: [id number] RECD: 06/07/24 14:53 STATUS: MATILDA RERobin #: [id number] SONNY: 06/04/24 08:[address]: Imtiaz Sanches DEPT: SURGICAL PATHOLOGY RECD BY: Delbert Hook ENTERED: 06/08/24 09:24 SP TYPE: PROST BX OTHR DR: DO Dr. Imtiaz Chavez MD [facility] Tissues: A - PROSTATE RIGHT B - PROSTATE RIGHT C - PROSTATE RIGHT D - PROSTATE LEFT E - PROSTATE LEFT F - PROSTATE LEFT Procedures: PROSTATE BX Comments: @ Ordering doctor for PROSB edited from [facility] to @ ryne ZAPATA at 06/08/24 1008 @ Submitting doctor edited from [facility] to @ by BENNY at 06/08/24 1008 HEADER OPERATION: Ultrasound guided prostate biopsy PRE-OP DIAGNOSIS: Benign prostatic hyperplasia with lower urinary tract symptoms, elevated PSA TISSUE SUBMITTED: A - Right base, B - Right mid, C - Right apex, D - Left base, E - Left mid, F - Left apex MICROSCOPIC DIAGNOSIS A. Right prostate, base, core biopsy: Mild chronic inflammation with focal acute inflammation. Focal glandular atrophy. Benign basal cell hyperplasia. See comment. B. Right prostate, mid, core biopsy: Minimal chronic inflammation. C. Right prostate, apex, core biopsy: Mild chronic inflammation. See comment. D. Left prostate, base, core biopsy: Benign prostatic tissue. E. Left prostate, mid, core biopsy: Mild chronic inflammation. F. Left prostate, apex, core biopsy: Mild chronic inflammation with focal acute inflammation. COMMENT Mark Obando. Immunohistochemistry ([id number]) supports the above diagnosis. MICROSCOPIC DESCRIPTION Slides are reviewed. GROSS DESCRIPTION A - Received is one container designated prostate, right base. The specimen consists of two elongated fragments of light mead-white soft tissue each measuring 2.0 cm in length and 0.1 cm in diameter. The specimen is totally submitted in one cassette. B - Received is one container designated prostate, right mid. The specimen consists of two elongated fragments of light mead-white soft tissue each measuring 1.5 cm in length and 0.1 cm in diameter. The specimen is totally submitted in one cassette. C - Received is one container designated prostate, right apex. The specimen consists of two elongated fragments of light mead-white soft tissue each measuring 1.8 cm in length and 0.1 cm in diameter. The specimen is totally submitted in one cassette. D - Received is one container designated prostate, left base. The specimen consists of two elongated fragments of light mead-white soft tissue each measuring 1.8 cm in length and 0.1 cm in diameter. The specimen is totally submitted in one cassette. E - Received is one container designated prostate, left mid. The specimen consists of two elongated fragments of light mead-white soft tissue measuring 1.3 and 1.5 cm in length and 0.1 cm in diameter. The specimen is totally submitted in one cassette. F - Received is one container designated prostate, left apex. The specimen consists of two elongated fragments of light mead-white soft tissue measuring 1.5 and 1.8 cm in length and 0.1 cm in diameter. The specimen is totally submitted in one cassette. / [email or web address] 06/08/2024 TC:2 CPT: G0146
== END | disposition home or self-care (01) ==
LOC: LABSPEC 15:32
PROVIDERS: PCP Internal Medicine; Referring Provider Urology; Visit Provider Urology
DX: N40.1 Benign prostatic hyperplasia with lower urinary tract symptoms (principal); R97.20 Elevated prostate specific antigen [PSA]; N42.89 Other specified disorders of prostate
CPT/HCPCS: 88305; 88341; 88342; G0416

== ENCOUNTER → 2024-12-17 | Outpatient (CLI) | payer MEDICARE, BC, SELFPAY | END | disposition home or self-care (01) | LOC: MTLAB 14:48 | PROVIDERS: PCP Internal Medicine; Referring Provider Urology; Visit Provider Urology | DX: R97.20 Elevated prostate specific antigen [PSA] (principal) | CPT/HCPCS: 36415; 84153 ==